=== PATIENT | female | born 1955 | race Hispanic/Latino ===

== ENCOUNTER 2019-02-04 01:10 | Emergency (ER) | payer OTHER ==
--- NOTE | 2019-02-04 03:12 | ER ---
Nurse's Notes [facility] Name: Tami Martínez Age: 64 yrs Sex: Female : 1955 Arrival Date: 02/04/2019 Time: 01:15 Bed 15 Private MD: Diagnosis: Cerebral infarction;Aphasia;Type 2 diabetes mellitus;Essential (primary) hypertension Presentation: 02/04 01:17 Presenting complaint: Child states: pt with tingling to both legs since 2099. pt with ak1 generalized leg weakness tonight. pt son stated pt with right side facial droop prior to EMS arrival, pt son states the droop to right side has resolved. pt stated upon arrival to ER15 she it having trouble swallowing. pt with hx stroke 4 years [employer]. Transition of care: patient was not received from another setting of care. Onset of symptoms was February 04, 2019. Risk Assessment: Do you want to hurt yourself or someone else? Patient reports no desire to harm self or others. Initial Sepsis Screen: Does the patient meet any 2 criteria? No. Patient's initial sepsis screen is negative. Does the patient have a suspected source of infection? No. Patient's initial sepsis screen is negative. Care prior to arrival: None. 01:17 Method Of Arrival: EMS: [facility] ak1 01:17 Acuity: FRANKY 2 ak1 01:21 Note EMS FSBG 97. pt son stated pt with deficits from stroke of slower ambulation, ak1 mumbled speech, decreased control her both her hands. Triage Assessment: 01:20 General: Appears in no apparent distress. ak1 Historical: - Allergies: 01:20 No Known Allergies; ak1 - Home Meds: 01:20 metformin 500 mg Oral tab 1 tab 2 times per day [Active]; ak1 lisinopril-hydrochlorothiazide 10-12.5 mg oral tab 1 tab once daily [Active]; Aspirin Oral [Active]; - PMHx: 01:20 Diabetes - NIDDM; TIA; Hypertension; ak1 - PSHx: 01:20 heart sx - unknown what type; ak1 - Immunization history:: Adult Immunizations unknown. - Social history:: Smoking status: Patient/guardian denies using tobacco. - Ebola Screening: : No symptoms or risks identified at this time. - Family history:: not pertinent. Screenin:30 Patient has been NPO before screening. The patient is alert, able to follow commands. lp1 The patient does not exhibit slurred or garbled speech The patient is not exhibiting difficulty speaking. The patient does not exhibit difficulty understanding words. The patient is able to swallow own secretions with no drooling or need for suction. Patient tolerated one teaspoon of water. No drooling, immediate coughing, gurgling, or clearing of the throat was noted. The patient tolerated 90mL of water. No drooling, immediate coughing, gurgling, or clearing of the throat was noted. The patient passed the bedside swallow screening. Oral medications may be given as ordered. Contact Physician for further diet orders. Provider notified of bedside swallow screening results: Madisyn ROBISON. 01:30 VAN Screening: Arm Drift: Minor drift. Visual Disturbance: No visual disturbance noted. lp1 Aphasia: No aphasia noted. Neglect: No neglect noted. 02:00 Abuse screen: Denies threats or abuse. Denies injuries from another. Nutritional lp1 screening: No deficits noted. Tuberculosis screening: No symptoms or risk factors identified. Fall Risk Total Logan Fall Scale indicates High Risk Score (45 or more points). Fall prevention measures have been instituted. Side Rails Up X 2 As available patient and family educated on Fall Prevention Program and Strategies. Assessment: 01:45 General: Appears in no apparent distress. Behavior is calm, cooperative, appropriate lp1 for age. Pain: Denies pain. Neuro: Level of Consciousness is awake, alert, obeys commands, Oriented to person, place, situation. Cardiovascular: Patient's skin is warm and dry. Respiratory: Respiratory effort is even, unlabored, Breath sounds are clear bilaterally. GI: Abdomen is non-distended. : No deficits noted. EENT: No deficits noted. Derm: Skin is pink, warm \T\ dry. Musculoskeletal: Circulation, motion, and sensation intact. Range of motion: intact in all extremities. 02:45 Reassessment: Patient states she is too weak to ambulate to bathroom or bsc; Assisted lp1 patient with using bedpan. 04:15 Reassessment: Report called to Dayanara Marie RN at [facility] for patient transfer lp1 to [place] [id number]. 05:09 Reassessment: Patient appears in no apparent distress at this time. Patient and/or lp1 family updated on plan of care and expected duration. Pain level reassessed. Patient resting, eyes closed, respirations unlabored; son at bedside. 05:57 Reassessment: Patient appears in no apparent distress at this time. No changes from lp1 previously documented assessment. Patient and/or family updated on plan of care and expected duration. Pain level reassessed. 07:00 General: Appears in no apparent distress. comfortable, Behavior is calm, cooperative. rb1 General: Son is at pt. bedside. Pt. has left sided deficits its from a previous stroke.. Pain: Denies pain. Neuro: Level of Consciousness is awake, alert, obeys commands, Oriented to person, place, situation. Cardiovascular: Capillary refill < 3 seconds is brisk in bilateral fingers. Respiratory: Airway is patent Respiratory effort is even, unlabored, Respiratory pattern is regular, symmetrical. Derm: Skin is pink, warm \T\ dry. 07:30 Reassessment: Patient appears in no apparent distress at this time. No changes from rb1 previously documented assessment. Gave report to [facility]. Information from the SBAR was given. All questions asked and answered. Vital Signs: 01:17 BP 145 / 107; Pulse 69; Resp 16; Temp 97.6; Pulse Ox 99% on R/A; Weight 81.65 kg (R); ak1 Height 5 ft. 4 in. (162.56 cm) (R); Pain 0/10; 01:30 BP 174 / 100; Pulse 73; Resp 16; Pulse Ox 96% on R/A; lp1 02:00 BP 192 / 93; Pulse 72; Resp 13; Pulse Ox 98% on R/A; lp1 02:30 BP 177 / 89; Pulse 71; Resp 16; Pulse Ox 97% on R/A; lp1 04:06 BP 150 / 63; Pulse 66; Resp 14; Pulse Ox 99% on R/A; lp1 05:46 BP 154 / 67; Pulse 76; Resp 18; Pulse Ox 98% on R/A; oe 07:00 BP 163 / 69; Pulse 73; Resp 15; Temp 97.2; Pulse Ox 98% on R/A; oe 01:17 Body Mass Index 30.90 (81.65 kg, 162.56 cm) ak1 [place] Coma Score: 02:30 Eye Response: spontaneous(4). Verbal Response: oriented(5). Motor Response: obeys snw commands(6). Total: 15. NIH Stroke Scale Scores: 01:30 NIHSS Score: 2 lp1 02:30 NIHSS Score: 3 snw 03:08 NIHSS Score: 9 prabhakar ED Course: 01:15 Patient arrived in ED. em1 01:17 Arm band placed on Patient placed in an exam room, on a stretcher, on pulse oximetry, ak1 Patient notified of wait time. 01:19 Triage completed. ak1 01:20 Madisyn Francis FNP-C is PHCP. snw 01:20 Bryon Morfin MD is Attending Physician. snw 01:21 Maintain EMS IV. Dressing intact. Site clean \T\ dry. Gauge \T\ site: 20g left wrist.. ak 1 01:50 Initial lab(s) drawn, by me, sent to lab. lp1 01:58 Jessica Kim, RN is Primary Nurse. lp1 01:59 Patient has correct armband on for positive identification. Placed in gown. Bed in low lp1 position. Side rails up X2. monitoring analyst on. Pulse ox on. NIBP on. 02:17 XRAY Chest (1 view) In Process Unspecified. EDMS 02:40 CT Head Brain wo Cont In Process Unspecified. EDMS 03:52 Administrative approval for transfer given by Sussy Valiente RN, [facility] Transfer em1 Coordinator. 04:06 No provider procedures requiring assistance completed. lp1 05:01 Due to the unavailability of transport resources, transport time has been delayed. [address] [facility] has no available ambulances, [facility] has not been able to be contacted, and other outside resources are also unavailable. 06:49 Straight cath inserted, using sterile technique, 16 Fr. Returned clear yellow urine. jb5 Patient tolerated well. 07:35 Patient transferred, IV remains in place. rb1 Administered Medications: 03:25 Drug: foLIC Acid 1 mg Route: IVPB; Site: left wrist; lp1 03:40 Follow up: IV Status: Completed infusion lp1 03:25 Drug: NS 0.9% 1000 ml Route: IV; Rate: 1 bolus; Site: left wrist; lp1 05:00 Follow up: IV Status: Completed infusion; IV Intake: 1000ml lp1 03:25 Drug: Aspirin Chewable Tablet 324 mg Route: PO; lp1 04:30 Follow up: Response: No adverse reaction lp1 03:25 Drug: PlaVIX 75 mg Route: PO; lp1 04:30 Follow up: Response: No adverse reaction lp1 Point of Care Testing: Blood Glucose: 01:21 Blood Glucose: 101 mg/dL; lp1 Ranges: Intake: 05:00 IV: 1000ml; Total: 1000ml. lp1 Outcome: 03:11 ER care complete, transfer ordered by prabhakar 04:16 Condition: stable lp1 04:16 Instructed on the need for transfer. 07:35 Patient left the ED. rb1 07:35 Transferred by ground EMS to [facility], Transfer form completed. rb1 NIH Stroke Scale - NIH Stroke Score Date: 02/04/2019 Time: 01:30 Total Score = 2 1a. Level of Consciousness (LOC) - 0(Alert) 1b. Level of Consciousness (LOC) (Year \T\ Age) - 0(Both) 1c. LOC Commands (Open \T\ Closes Eyes/Investor Relations Director) - 0(Both) 2. Best Gaze (Lateral Gaze Paresis) - 0(Normal) 3. Visual Field Loss - 0(No visual loss) 4. Facial Palsy - 1(Minor Paralysis) 5a. Left Arm: Motor (10-second hold) - 0(No drift) 5b. Right Arm: Motor (10-second hold) - 0(No drift) 6a. Left Leg: Motor (5-second hold - always test supine) - 0(No drift) 6b. Right Leg: Motor (5-second hold - always test supine) - 0(No drift) 7. Limb Ataxia (finger/nose \T\ heel/schulte - test with eyes open) - 0(Absent) 8. Sensory Loss (pinprick arms/legs/face) - 0(Normal) 9. Best Language: Aphasia (description/naming/reading) - 1(Mild to moderate aphasia) 10. Dysarthria (speech clarity - read or repeat words) - 0(Normal) 11. Extinction and Inattention (visual/tactile/auditory/spatial/personal) - 0(No abnormality) Initials: lp1 NIH Stroke Scale - NIH Stroke Score Date: 02/04/2019 Time: 02:30 Total Score = 3 1a. Level of Consciousness (LOC) - 0(Alert) 1b. Level of Consciousness (LOC) (Year \T\ Age) - 0(Both) 1c. LOC Commands (Open \T\ Closes Eyes/Investor Relations Director) - 0(Both) 2. Best Gaze (Lateral Gaze Paresis) - 0(Normal) 3. Visual Field Loss - 0(No visual loss) 4. Facial Palsy - 1(Minor Paralysis) 5a. Left Arm: Motor (10-second hold) - 0(No drift) 5b. Right Arm: Motor (10-second hold) - 0(No drift) 6a. Left Leg: Motor (5-second hold - always test supine) - 0(No drift) 6b. Right Leg: Motor (5-second hold - always test supine) - 0(No drift) 7. Limb Ataxia (finger/nose \T\ heel/schulte - test with eyes open) - 0(Absent) 8. Sensory Loss (pinprick arms/legs/face) - 1(Mild to moderate loss) 9. Best Language: Aphasia (description/naming/reading) - 0(No aphasia) 10. Dysarthria (speech clarity - read or repeat words) - 1(Mild to Moderate) 11. Extinction and Inattention (visual/tactile/auditory/spatial/personal) - 0(No abnormality) Initials: [facility] NIH Stroke Scale - NIH Stroke Score Date: 02/04/2019 Time: 03:08 Total Score = 9 1a. Level of Consciousness (LOC) - 0(Alert) 1b. Level of Consciousness (LOC) (Year \T\ Age) - 0(Both) 1c. LOC Commands (Open \T\ Closes Eyes/Investor Relations Director) - 0(Both) 2. Best Gaze (Lateral Gaze Paresis) - 0(Normal) 3. Visual Field Loss - 0(No visual loss) 4. Facial Palsy - 2(Partial paralysis) 5a. Left Arm: Motor (10-second hold) - 2(Drift, some effort against gravity) 5b. Right Arm: Motor (10-second hold) - 0(No drift) 6a. Left Leg: Motor (5-second hold - always test supine) - 1(Drift) 6b. Right Leg: Motor (5-second hold - always test supine) - 0(No drift) 7. Limb Ataxia (finger/nose \T\ heel/schulte - test with eyes open) - 2(Present in two limbs) 8. Sensory Loss (pinprick arms/legs/face) - 0(Normal) 9. Best Language: Aphasia (description/naming/reading) - 1(Mild to moderate aphasia) 10. Dysarthria (speech clarity - read or repeat words) - 1(Mild to Moderate) 11. Extinction and Inattention (visual/tactile/auditory/spatial/personal) - 0(No abnormality) Initials: prabhakar Signatures: Dispatcher [employer] EDMS Bryon Morfin MD MD cha Therrien, Shelly, PATIENT SCHEDULER-C PATIENT SCHEDULER-Csnw Guanako Vasquez em1 Jessica Kim RN RN lp1 Shayy Sanz RN RN ak1 Asia Bryan RN RN rb1 Leonard Clark Jennifer jb5 Corrections: (The following items were deleted from the chart) 07:39 07:30 Reassessment: Gave report to [facility]. Information from the SBAR was rb1 given. All questions asked and answered. rb1
--- NOTE | 2019-02-04 03:13 | EDPHYS ---
Physician Documentation [facility] Name: Tami Martínez Age: 64 yrs Sex: Female : 1955 Arrival Date: 02/04/2019 Time: 01:15 Bed 15 Private MD: ED Physician Bryon Morfin HPI: 02/04 03:11 This 64 yrs old Female presents to ER via EMS with complaints of aphasia, left prabhakar face weakness and left arm and leg weakness. 01:59 The patient's problem is reported as a facial droop, on right, weakness. Onset: The snw symptoms/episode began/occurred suddenly, at 20:00, and improved. Duration: improved. Context: the episode(s) was witnessed, by family, son, symptoms became apparent on February 03, 2019, at 20:00. occurred at home, occurred while the patient was at rest. Associated signs and symptoms: Pertinent positives: tingling, weakness, right sided facial droop. Severity of symptoms: At their worst the symptoms were moderate. Patient's baseline: Neuro: alert and fully oriented, Motor: no deficits, The patient has a previous history of CVA, 4 years ago. The patient has experienced similar episodes in the past. The patient has not recently seen a physician, the patient's primary care provider is Dr. Dr. Villaseñor. 03:11 Context: occurred at home, time from onset greater than 4.5 hours, not tpa candidate, prabhakar mckenzie agreeed. Historical: - Allergies: 01:20 No Known Allergies; ak1 - Home Meds: 01:20 metformin 500 mg Oral tab 1 tab 2 times per day [Active]; ak1 lisinopril-hydrochlorothiazide 10-12.5 mg oral tab 1 tab once daily [Active]; Aspirin Oral [Active]; - PMHx: 01:20 Diabetes - NIDDM; TIA; Hypertension; ak1 - PSHx: 01:20 heart sx - unknown what type; ak1 - Immunization history:: Adult Immunizations unknown. - Social history:: Smoking status: Patient/guardian denies using tobacco. - Ebola Screening: : No symptoms or risks identified at this time. - Family history:: not pertinent. ROS: 02:03 Constitutional: Negative for fever, chills, and weight loss, Eyes: Negative for injury, snw pain, redness, and discharge, ENT: Negative for injury, pain, and discharge, Neck: Negative for injury, pain, and swelling, Cardiovascular: Negative for chest pain, palpitations, and edema, Respiratory: Negative for shortness of breath, cough, wheezing, and pleuritic chest pain, Abdomen/GI: Negative for abdominal pain, nausea, vomiting, diarrhea, and constipation, Back: Negative for injury and pain, : Negative for injury, bleeding, discharge, and swelling, MS/Extremity: Negative for injury and deformity, Skin: Negative for injury, rash, and discoloration. 02:03 Neuro: Positive for speech changes, tingling, weakness, of the left facial droop, left hand tingling, bilateral feet tingling. Exam: 02:04 Constitutional: This is a well developed, well nourished patient who is awake, alert, snw and in no acute distress. Head/Face: Normocephalic, atraumatic. Eyes: Pupils equal round and reactive to light, extra-ocular motions intact. Lids and lashes normal. Conjunctiva and sclera are non-icteric and not injected. Cornea within normal limits. Periorbital areas with no swelling, redness, or edema. ENT: Nares patent. No nasal discharge, no septal abnormalities noted. Tympanic membranes are normal and external auditory canals are clear. Oropharynx with no redness, swelling, or masses, exudates, or evidence of obstruction, uvula midline. Mucous membranes moist. Neck: Trachea midline, no thyromegaly or masses palpated, and no cervical lymphadenopathy. Supple, full range of motion without nuchal rigidity, or vertebral point tenderness. No Meningismus. Chest/axilla: Normal chest wall appearance and motion. Nontender with no deformity. No lesions are appreciated. Cardiovascular: Regular rate and rhythm with a normal S1 and S2. No gallops, murmurs, or rubs. Normal PMI, no JVD. No pulse deficits. Respiratory: Lungs have equal breath sounds bilaterally, clear to auscultation and percussion. No rales, rhonchi or wheezes noted. No increased work of breathing, no retractions or nasal flaring. Abdomen/GI: Soft, non-tender, with normal bowel sounds. No distension or tympany. No guarding or rebound. No evidence of tenderness throughout. Back: No spinal tenderness. No costovertebral tenderness. Full range of motion. Skin: Warm, dry with normal turgor. Normal color with no rashes, no lesions, and no evidence of cellulitis. MS/ Extremity: Pulses equal, no cyanosis. Neurovascular intact. Full, normal range of motion. Psych: Awake, alert, with orientation to person, place and time. Behavior, mood, and affect are within normal limits. 02:04 Neuro: Orientation: is normal, Mentation: is normal, Memory: is normal, Cranial nerves: facial droop noted on left, minimal, Son states obvious improvement. Sensation: tingling, that is mild, of the left hand, right foot and left foot, Gait: not tested. Vital Signs: 01:17 BP 145 / 107; Pulse 69; Resp 16; Temp 97.6; Pulse Ox 99% on R/A; Weight 81.65 kg (R); ak1 Height 5 ft. 4 in. (162.56 cm) (R); Pain 0/10; 01:30 BP 174 / 100; Pulse 73; Resp 16; Pulse Ox 96% on R/A; lp1 02:00 BP 192 / 93; Pulse 72; Resp 13; Pulse Ox 98% on R/A; lp1 02:30 BP 177 / 89; Pulse 71; Resp 16; Pulse Ox 97% on R/A; lp1 04:06 BP 150 / 63; Pulse 66; Resp 14; Pulse Ox 99% on R/A; lp1 05:46 BP 154 / 67; Pulse 76; Resp 18; Pulse Ox 98% on R/A; oe 07:00 BP 163 / 69; Pulse 73; Resp 15; Temp 97.2; Pulse Ox 98% on R/A; oe 01:17 Body Mass Index 30.90 (81.65 kg, 162.56 cm) ak1 NIH Stroke Scale Scores: 01:30 NIHSS Score: 2 lp1 02:30 NIHSS Score: 3 snw 03:08 NIHSS Score: 9 [facility] Verenice Coma Score: 02:30 Eye Response: spontaneous(4). Verbal Response: oriented(5). Motor Response: obeys snw commands(6). Total: 15. MDM: 01:21 Patient medically screened. [facility] 02:47 Data reviewed: vital signs, nurses notes, EMS record. Data interpreted: Pulse oximetry: snw on is 97 %. Interpretation: normal. Counseling: I had a detailed discussion with the patient and/or guardian regarding: the historical points, exam findings, and any diagnostic results supporting the discharge/admit diagnosis, the presence of at least one elevated blood pressure reading (>120/80) during this emergency department visit. Transition of care: After a detail discussion of the patient's case, care is transferred to Bryon Morfin MD. 02/04 01:34 Order name: Basic Metabolic Panel; Complete Time: 06:33 snw 02/04 01:34 Order name: CBC with Diff; Complete Time: 06:33 snw 02/04 01:34 Order name: LFT's; Complete Time: 06:33 w 02/04 01:34 Order name: Magnesium; Complete Time: 06:33 w 02/04 01:34 Order name: NT PRO-BNP; Complete Time: 06:33 snw 02/04 01:34 Order name: PT-INR; Complete Time: 06:33 w 02/04 01:34 Order name: CT Head Brain wo Cont w 02/04 01:34 Order name: Troponin (emerg Dept Use Only); Complete Time: 06:33 w 02/04 01:34 Order name: XRAY Chest (1 view); Complete Time: 17:09 w 02/04 06:34 Order name: Urine Culture [facility] 02/04 06:53 Order name: Urine Dipstick--Ancillary (enter results) em1 02/04 01:34 Order name: EKG; Complete Time: 01:37 02/04 01:34 Order name: Cardiac monitoring; Complete Time: 02:02 02/04 01:34 Order name: EKG - Nurse/Tech; Complete Time: 02:02 w 02/04 01:34 Order name: IV Saline Lock; Complete Time: 02:02 02/04 01:34 Order name: Labs collected and sent; Complete Time: 02:02 02/04 01:34 Order name: O2 Per Protocol; Complete Time: 02:02 w 02/04 01:34 Order name: O2 Sat Monitoring; Complete Time: 02:03 02/04 01:40 Order name: FSBS; Complete Time: 02:01 02/04 06:34 Order name: Urine Dipstick-Ancillary (obtain specimen); Complete Time: 07:13 prabhakar Administered Medications: 03:25 Drug: foLIC Acid 1 mg Route: IVPB; Site: left wrist; lp1 03:40 Follow up: IV Status: Completed infusion lp1 03:25 Drug: NS 0.9% 1000 ml Route: IV; Rate: 1 bolus; Site: left wrist; lp1 05:00 Follow up: IV Status: Completed infusion; IV Intake: 1000ml lp1 03:25 Drug: Aspirin Chewable Tablet 324 mg Route: PO; lp1 04:30 Follow up: Response: No adverse reaction lp1 03:25 Drug: PlaVIX 75 mg Route: PO; lp1 04:30 Follow up: Response: No adverse reaction lp1 Point of Care Testing: Blood Glucose: 01:21 Blood Glucose: 101 mg/dL; lp1 Ranges: Critical Glucose Levels:Adult <50 mg/dl or >400 mg/dl <40 mg/dl or >180 mg/dl Disposition: 03:11 Co-signature as Attending Physician, Bryon Morfin MD I agree with the assessment and prabhakar plan of care. Disposition: 02/04/19 03:11 Transfer ordered to [facility]. Diagnosis are Cerebral infarction, Aphasia, Type 2 diabetes mellitus, Essential (primary) hypertension. - Reason for transfer: Higher level of care. - Accepting physician [facility] to [facility], [facility], neuro consult. - Condition is Stable. - Problem is new. - Symptoms are unchanged. NIH Stroke Scale - NIH Stroke Score Date: 02/04/2019 Time: 01:30 Total Score = 2 1a. Level of Consciousness (LOC) - 0(Alert) 1b. Level of Consciousness (LOC) (Year \T\ Age) - 0(Both) 1c. LOC Commands (Open \T\ Closes Eyes/Mig Welder) - 0(Both) 2. Best Gaze (Lateral Gaze Paresis) - 0(Normal) 3. Visual Field Loss - 0(No visual loss) 4. Facial Palsy - 1(Minor Paralysis) 5a. Left Arm: Motor (10-second hold) - 0(No drift) 5b. Right Arm: Motor (10-second hold) - 0(No drift) 6a. Left Leg: Motor (5-second hold - always test supine) - 0(No drift) 6b. Right Leg: Motor (5-second hold - always test supine) - 0(No drift) 7. Limb Ataxia (finger/nose \T\ heel/schulte - test with eyes open) - 0(Absent) 8. Sensory Loss (pinprick arms/legs/face) - 0(Normal) 9. Best Language: Aphasia (description/naming/reading) - 1(Mild to moderate aphasia) 10. Dysarthria (speech clarity - read or repeat words) - 0(Normal) 11. Extinction and Inattention (visual/tactile/auditory/spatial/personal) - 0(No abnormality) Initials: lp1 NIH Stroke Scale - NIH Stroke Score Date: 02/04/2019 Time: 02:30 Total Score = 3 1a. Level of Consciousness (LOC) - 0(Alert) 1b. Level of Consciousness (LOC) (Year \T\ Age) - 0(Both) 1c. LOC Commands (Open \T\ Closes Eyes/Mig Welder) - 0(Both) 2. Best Gaze (Lateral Gaze Paresis) - 0(Normal) 3. Visual Field Loss - 0(No visual loss) 4. Facial Palsy - 1(Minor Paralysis) 5a. Left Arm: Motor (10-second hold) - 0(No drift) 5b. Right Arm: Motor (10-second hold) - 0(No drift) 6a. Left Leg: Motor (5-second hold - always test supine) - 0(No drift) 6b. Right Leg: Motor (5-second hold - always test supine) - 0(No drift) 7. Limb Ataxia (finger/nose \T\ heel/schulte - test with eyes open) - 0(Absent) 8. Sensory Loss (pinprick arms/legs/face) - 1(Mild to moderate loss) 9. Best Language: Aphasia (description/naming/reading) - 0(No aphasia) 10. Dysarthria (speech clarity - read or repeat words) - 1(Mild to Moderate) 11. Extinction and Inattention (visual/tactile/auditory/spatial/personal) - 0(No abnormality) Initials: snw NIH Stroke Scale - NIH Stroke Score Date: 02/04/2019 Time: 03:08 Total Score = 9 1a. Level of Consciousness (LOC) - 0(Alert) 1b. Level of Consciousness (LOC) (Year \T\ Age) - 0(Both) 1c. LOC Commands (Open \T\ Closes Eyes/Mig Welder) - 0(Both) 2. Best Gaze (Lateral Gaze Paresis) - 0(Normal) 3. Visual Field Loss - 0(No visual loss) 4. Facial Palsy - 2(Partial paralysis) 5a. Left Arm: Motor (10-second hold) - 2(Drift, some effort against gravity) 5b. Right Arm: Motor (10-second hold) - 0(No drift) 6a. Left Leg: Motor (5-second hold - always test supine) - 1(Drift) 6b. Right Leg: Motor (5-second hold - always test supine) - 0(No drift) 7. Limb Ataxia (finger/nose \T\ heel/schulte - test with eyes open) - 2(Present in two limbs) 8. Sensory Loss (pinprick arms/legs/face) - 0(Normal) 9. Best Language: Aphasia (description/naming/reading) - 1(Mild to moderate aphasia) 10. Dysarthria (speech clarity - read or repeat words) - 1(Mild to Moderate) 11. Extinction and Inattention (visual/tactile/auditory/spatial/personal) - 0(No abnormality) Initials: [facility] Signatures: Dispatcher [employer] EDBryon Lockett MD MD cha Therrien, Shelly, ENVIRONMENTAL ASSOCIATE-C ENVIRONMENTAL ASSOCIATE-Csnw Jessica Kim RN RN lp1 Shayy Sanz RN RN ak1 Asia Bryan, RN RN rb1 Corrections: (The following items were deleted from the chart) 02:07 02:03 Neuro: Positive for speech changes, tingling, weakness, of the right snw facial droop, right hand tingling, , snw 03:15 03:11 02/04/2019 03:11 Transfer ordered to [facility]. prabhakar Diagnosis is Cerebral infarction; Aphasia. Reason for transfer: Higher level of care. Accepting physician is to [facility], tele, neuro consult. Condition is Stable. Problem is new. Symptoms are unchanged. prabhakar 07:35 03:15 02/04/2019 03:11 Transfer ordered to [facility]. rb1 Diagnosis is Cerebral infarction; Aphasia; Type 2 diabetes mellitus; Essential (primary) hypertension. Reason for transfer: Higher level of care. Accepting physician is to [facility], tele, neuro consult. Condition is Stable. Problem is new. Symptoms are unchanged. prabhakar
[2019-02-04] MEDS ORDERED: ASPIRIN 81 MG CHEWABLE TABLET ONE (03:14)
[2019-02-04] MEDS ORDERED: NA CHLORIDE 0.9% 1,000 ML ONE (03:14)
[2019-02-04] MEDS ORDERED: CLOPIDOGREL 75 MG TABLET ONE (03:14)
[2019-02-04] MEDS ORDERED: NA CHLORIDE 0.9% 50 ML IV ONE (03:15)
[2019-02-04] MEDS ORDERED: FOLIC ACID 5 MG/ML VIAL ONE (03:15)
[2019-02-04 03:29] LABS: Protime INR 1.05
[2019-02-04 03:30] LABS: MPV 9.1 fL (7.6-11.3)
[2019-02-04 03:34] LABS: Absolute Lymphocytes (CBC) 2.8 K/uL (0.7-4.9); Basophils % 0.7 % (0-1.3); RBC Red Blood Cell Count 4.55 M/uL (3.86-4.86)
[2019-02-04 03:46] LABS: ALT/SGPT 33 U/L (12-78); AST/SGOT 24 U/L (15-37); Albumin 3.8 g/dL (3.4-5.0); Alkaline Phosphatase 126 U/L (45-117); BUN Blood Urea Nitrogen 12 mg/dL (7-18); Bicarbonate 26 mmol/L (21-32); Bilirubin Direct 0.1 mg/dL (0-0.2); Bilirubin Total 0.5 mg/dL (0.2-1.0); Glucose Level 113 mg/dL (74-106); Magnesium 2.1 mg/dL (1.8-2.4); NT PRO-BNP 30 pg/mL (<125); Potassium 3.6 mmol/L (3.5-5.1); Protein, Total 7.7 g/dL (6.4-8.2); Sodium Level 139 mmol/L (136-145); Troponin (Emerg Dept Use Only) < 0.02 ng/mL (0.0-0.045)
--- NOTE | 2019-02-04 07:45 | RAD REPORT ---
EXAM DESCRIPTION: RAD - Chest Single View - 02/04/2019 2:02 am CLINICAL HISTORY: Weakness, shortness of breath COMPARISON: None. TECHNIQUE: AP portable chest image was obtained [id number] hours . FINDINGS: Lungs are clear. Heart and vasculature are normal. No measurable pleural effusion and no p neumothorax. No acute bony abnormality seen. No acute aortic findings suspected. IMPRESSION: No acute cardiopulmonary process.
[2019-02-04 07:54] LABS: Urine Blood TRACE (NEG); Urine Glucose NEGATIVE (NEG); Urine Protein NEGATIVE (NEG)
[2019-02-04 08:02] VITALS: BP 126/54; TEMP 98.6; O2SAT 93
--- NOTE | 2019-02-04 13:15 | RAD REPORT ---
EXAM DESCRIPTION: CT - Head Brain Wo Cont - 02/04/2019 3:24 am CLINICAL HISTORY: WEAKNESS COMPARISON: None. TECHNIQUE: CT HEAD WITHOUT IV CONTRAST on 02/04/2019 1:34 AM CDT This exam was performed according to our departmental dose-optimization program, which includes autom ated exposure control, adjustment of the mA and/or kV according to patient size and/or use of iterati ve reconstruction technique. FINDINGS: There is no acute hemorrhage, mass effect or midline shift. There are bilateral old anteri or basal ganglia lacunar infarcts. There is no hydrocephalus. There is no significant volume loss for age. There are mild patchy hypodensities within the periventricular and subcortical white matter, co nsistent with microangiopathic ischemic changes. The calvarium is intact. Orbits and globes are unremarkable. The paranasal sinuses are clear. There a re postoperative changes of the right mastoid air cells. IMPRESSION: No acute intracranial findings. Electronically signed by: Anderson Mccurdy MD 02/04/2019 3:14 AM CDT Due to temporary technical issues with the PACS/Fluency reporting system, reports are being signed by the in house radiologist as a courtesy to ensure prompt reporting. The interpreting radiologist is f ully responsible for the content of the report.
--- NOTE | 2019-02-05 08:42 | EKG ---
Test Date: 2019-02-04 Test Time: 02:29:56 Community Dietitian: PARVIN MEASUREMENT RESULTS: Intervals: Rate: 65 TX: 168 QRSD: 92 QT: 418 QTc: 434 [place]: P: 16 TX: 168 QRS: -20 T: 42 INTERPRETIVE STATEMENTS: Normal sinus rhythm possible Septal infarct, age undetermined Abnormal ECG No previous ECG available for comparison Electronically Signed On 02-05-19 08:40:31 CDT by Sam Lama
== END 2019-02-04 07:35 | disposition short-term general hospital (02) ==
LOC: ER 01:10
DX: I63.9 Cerebral infarction, unspecified (principal); R47.01 Aphasia; E11.9 Type 2 diabetes mellitus without complications; I10 Essential (primary) hypertension
CPT/HCPCS: 96361; 93005; 87088; 85025; 80048; 36415; 83735; 85610; 82962; 80076; 81003; 84484; 83880; 70450; 71045; 51702; 96374; 99285; J7030; 87086

== ENCOUNTER 2019-04-28 21:32 | Emergency (ER) | payer OTHER ==
--- OUTSIDE RECORDS SUMMARY | 2019-04-28 21:34 | XMS REPORT ---
:1955 [facility] [address] [place] [address] [address]. [address] [place] [address] Care Team Providers Name Role Phone DIANN RICEOMA Unavailable Unavailable Problems This patient has no known problems. Allergies, Adverse Reactions, Alerts This patient has no known allergies or adverse reactions. Medications This patient has no known medications. Encounters Start End Encounter Admission Attending Care Care Encounter Date/Time Date/Time Type Type Clinicians Facility Department ID 2018-03-03 2018-03-03 Outpatient [facility] [id number] 00:00:00 00:00:00 2018-03-03 2018-03-03 Outpatient [facility] [id number] 00:00:00 00:00:00 2018-01-21 2018-01-21 Outpatient [facility] [id number] 00:00:00 00:00:00 2018 2018 Outpatient [facility] [id number] 14:49:14 14:49:14 2017-12-29 2017-12-29 Outpatient [facility] [id number] 00:00:00 00:00:00 2017-11-19 2017-11-19 Outpatient [facility] [id number] 00:00:00 00:00:00 2017-11-05 2017-11-05 Outpatient [facility] [id number] 00:00:00 00:00:00 2017-10-28 2017-10-28 Outpatient [facility] [id number] 00:00:00 00:00:00 2017-07-11 2017-07-11 Outpatient [facility] [id number] 00:00:00 00:00:00 Results Test Description Test Time Test Comments Text Results Atomic Results Result Comments POCT-GLUCOSE METER 2019-02-10 08:36:00 Test Item Value Reference Range Comments POC-GLUCOSE METER (BEAKER) (test 134 mg/dL 70-110 TESTED AT [address] splf=0567) [facility] [address] BASIC METABOLIC [id number] 06:41:00 Test Item Value Reference Range Comments SODIUM (BEAKER) (test 140 meq/L 136-145 uooc=446) POTASSIUM (BEAKER) (test 3.8 meq/L 3.5-5.1 ffoz=825) CHLORIDE (BEAKER) (test 107 meq/L 98-107 zpvi=637) CO2 (BEAKER) (test 25 meq/L 22-29 zwwt=510) BLOOD UREA NITROGEN 13 mg/dL 7-21 (BEAKER) (test bmln=224) CREATININE (BEAKER) (test 0.68 mg/dL 0.57-1.25 vxea=357) GLUCOSE RANDOM (BEAKER) 112 mg/dL 70-105 (test ybox=252) CALCIUM (BEAKER) (test 9.0 mg/dL 8.4-10.2 wikb=466) EGFR (BEAKER) (test 87 mL/min/1.73 sq m ESTIMATED GFR IS NOT frsd=8759) ACCURATE CREATININE CLEARANCE IN PREDICTING GLOMERULAR FILTRATION RATE. ESTIMATED GFR IS NOT APPLICABLE FOR DIALYSIS PATIENTS. POCT-GLUCOSE [id number] 21:31:00 Test Item Value Reference Range Comments POC-GLUCOSE METER (BEAKER) 112 mg/dL 70-110 TESTED AT [address] (test stvc=1049) [place] [address] POCT-GLUCOSE [id number] 16:38:00 Test Item Value Reference Range Comments POC-GLUCOSE METER (BEAKER) 102 mg/dL 70-110 TESTED AT [address] (test twqy=1994) [place] [address] POCT-GLUCOSE [id number] 08:41:00 Test Item Value Reference Range Comments POC-GLUCOSE METER (BEAKER) 91 mg/dL 70-110 TESTED AT [address] (test tvwf=2653) [place] [address] POCT-GLUCOSE [id number] 06:49:00 Test Item Value Reference Range Comments POC-GLUCOSE METER (BEAKER) 106 mg/dL 70-110 TESTED AT [address] (test bsob=8778) [place] [address] BASIC METABOLIC [id number] 04:23:00 Test Item Value Reference Range Comments SODIUM (BEAKER) (test 137 meq/L 136-145 abaq=786) POTASSIUM (BEAKER) (test 4.0 meq/L 3.5-5.1 rxrc=585) CHLORIDE (BEAKER) (test 106 meq/L 98-107 rtvw=605) CO2 (BEAKER) (test 24 meq/L 22-29 llis=132) BLOOD UREA NITROGEN 13 mg/dL 7-21 (BEAKER) (test lkak=721) CREATININE (BEAKER) (test 0.69 mg/dL 0.57-1.25 sdxt=793) GLUCOSE RANDOM (BEAKER) 150 mg/dL 70-105 (test siuu=278) CALCIUM (BEAKER) (test 8.7 mg/dL 8.4-10.2 swiz=593) EGFR (BEAKER) (test 86 mL/min/1.73 sq m ESTIMATED GFR IS NOT vygd=6245) ACCURATE CREATININE CLEARANCE IN PREDICTING GLOMERULAR FILTRATION RATE. ESTIMATED GFR IS NOT APPLICABLE FOR DIALYSIS PATIENTS. POCT-GLUCOSE [id number] 21:45:00 Test Item Value Reference Range Comments POC-GLUCOSE METER (BEAKER) 129 mg/dL 70-110 TESTED AT [address] (test comd=4688) [place] [address] POCT-GLUCOSE [id number] 18:16:00 Test Item Value Reference Range Comments POC-GLUCOSE METER (BEAKER) 94 mg/dL 70-110 TESTED AT [address] (test clgv=3477) [place] [address] POCT-GLUCOSE [id number] 12:50:00 Test Item Value Reference Range Comments POC-GLUCOSE METER (BEAKER) 122 mg/dL 70-110 TESTED AT [address] (test svkg=1936) [place] [address] POCT-GLUCOSE [id number] 09:50:00 Test Item Value Reference Range Comments POC-GLUCOSE METER (BEAKER) 94 mg/dL 70-110 TESTED AT [address] (test ykvw=0459) [place] [address] BASIC METABOLIC [id number] 06:34:00 Test Item Value Reference Range Comments SODIUM (BEAKER) (test 138 meq/L 136-145 fshu=833) POTASSIUM (BEAKER) (test 4.0 meq/L 3.5-5.1 tgzn=356) CHLORIDE (BEAKER) (test 106 meq/L 98-107 ikhk=357) CO2 (BEAKER) (test 25 meq/L 22-29 ezdm=510) BLOOD UREA NITROGEN 12 mg/dL 7-21 (BEAKER) (test uhqb=906) CREATININE (BEAKER) (test 0.68 mg/dL 0.57-1.25 ltxy=586) GLUCOSE RANDOM (BEAKER) 119 mg/dL 70-105 (test lczi=224) CALCIUM (BEAKER) (test 9.1 mg/dL 8.4-10.2 qrdw=130) EGFR (BEAKER) (test 87 mL/min/1.73 sq m ESTIMATED GFR IS NOT ursm=9682) ACCURATE CREATININE CLEARANCE IN PREDICTING GLOMERULAR FILTRATION RATE. ESTIMATED GFR IS NOT APPLICABLE FOR DIALYSIS PATIENTS. POCT-GLUCOSE [id number] 06:23:00 Test Item Value Reference Range Comments POC-GLUCOSE METER (BEAKER) 134 mg/dL 70-110 TESTED AT [address] (test hcwz=5428) [place] [id number] POCT-GLUCOSE [id number] 00:08:00 Test Item Value Reference Range Comments POC-GLUCOSE METER (BEAKER) 99 mg/dL 70-110 TESTED AT [address] (test hvya=9424) [place] [address] POCT-GLUCOSE [id number] 10:01:00 Test Item Value Reference Range Comments POC-GLUCOSE METER (BEAKER) 118 mg/dL 70-110 TESTED AT [address] (test xoyk=3363) [facility] [address] BASIC METABOLIC [id number] 06:36:00 Test Item Value Reference Range Comments SODIUM (BEAKER) (test 139 meq/L 136-145 lcwe=915) POTASSIUM (BEAKER) (test 3.7 meq/L 3.5-5.1 fwfe=118) CHLORIDE (BEAKER) (test 107 meq/L 98-107 cgnu=582) CO2 (BEAKER) (test 23 meq/L 22-29 rkma=578) BLOOD UREA NITROGEN 12 mg/dL 7-21 (BEAKER) (test yeuu=748) CREATININE (BEAKER) (test 0.69 mg/dL 0.57-1.25 sgxp=374) GLUCOSE RANDOM (BEAKER) 111 mg/dL 70-105 (test gfdx=426) CALCIUM (BEAKER) (test 9.1 mg/dL 8.4-10.2 qfgj=975) EGFR (BEAKER) (test 86 mL/min/1.73 sq m ESTIMATED GFR IS NOT huyy=4989) ACCURATE CREATININE CLEARANCE IN PREDICTING GLOMERULAR FILTRATION RATE. ESTIMATED GFR IS NOT APPLICABLE FOR DIALYSIS PATIENTS. POCT-GLUCOSE [id number] 06:29:00 Test Item Value Reference Range Comments POC-GLUCOSE METER (BEAKER) 96 mg/dL 70-110 TESTED AT [address] (test mltp=8463) [facility] [address] POCT-GLUCOSE [id number] 21:44:00 Test Item Value Reference Range Comments POC-GLUCOSE METER (BEAKER) 131 mg/dL 70-110 TESTED AT [address] (test nbwn=2231) [facility] [address] POCT-GLUCOSE [id number] 17:40:00 Test Item Value Reference Range Comments POC-GLUCOSE METER (BEAKER) 145 mg/dL 70-110 TESTED AT [address] (test ybxz=9113) [facility] [address] POCT-GLUCOSE [id number] 13:02:00 Test Item Value Reference Range Comments POC-GLUCOSE METER (BEAKER) 108 mg/dL 70-110 TESTED AT [address] (test dvzw=5471) [facility] [address] POCT-GLUCOSE [id number] 08:49:00 Test Item Value Reference Range Comments POC-GLUCOSE METER (BEAKER) 106 mg/dL 70-110 TESTED AT [address] (test ktmp=6230) [facility] [address] POCT-GLUCOSE [id number] 06:02:00 Test Item Value Reference Range Comments POC-GLUCOSE METER (BEAKER) 99 mg/dL 70-110 TESTED AT [address] (test cfzd=1820) [facility] [address] POCT-GLUCOSE [id number] 00:54:00 Test Item Value Reference Range Comments POC-GLUCOSE METER (BEAKER) 120 mg/dL 70-110 TESTED AT [address] (test gtoo=9883) [facility] [address] POCT-GLUCOSE [id number] 12:27:00 Test Item Value Reference Range Comments POC-GLUCOSE METER (BEAKER) 113 mg/dL 70-[address] [facility] [address] (test nkkg=0350) [facility] [address] [id number] 11:05:00 Test Item Value Reference Range Comments RPR SCREEN (MOHINDER) (test bohm=149) Nonreactive Nonreactive MR, MRA, BRAIN, WITHOUT [id number] 10:13:00Reason for exam:-> Ischemic Stroke EvaluationFINAL REPORT MRA Head CLINICAL HISTORY: Stroke TECHNIQUE: MRA of the head utilizing 3-D wccp-an-tkiafp technique, with 3-D reconstructions. COMPARISON: None FINDINGS: There is noevidence for a deering of Treadwell proximal branch vessel occlusion. There is a origin of the right posterior cerebral artery with severe proximal stenosis. There is moderate stenosis of the right middle cerebral artery and mild stenosis of the left middle cerebral artery. There is severe stenosis of the right intradural vertebral artery. The nondominant left intradural vertebral artery is diminutive. There is a 2.5 mm aneurysm projecting medially from the right paraclinoid internal carotid artery, involving the superior hypophyseal segment. 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 No evidence for a deering of Treadwell proximal branch vessel occlusion. Multifocal intracranial atherosclerotic disease. MRA Neck CLINICAL HISTORY: Stroke TECHNIQUE: MRA of the neck utilizing 2-D and 3-D time- of-flight technique, with 3-D reconstructions. COMPARISON: None FINDINGS: The carotid arteries inthe neck are patent including their bifurcations. There is antegrade flow in the vertebral arteries in the neck. The nondominant left vertebral artery is diminutive throughout. IMPRESSION: No evidence of hemodynamically significant stenosis in the cervical carotid or vertebral arteries by NASCET criteria. Signed: Lilia Lewis MDReport Verified Date/Time: 02/05/2019 10:13:50 Reading Location: [address] Neuro Reading Room MR, MRA, NECK, WITHOUT IV [id number] 10:13:00Reason for exam:->Ischemic Stroke EvaluationFINAL REPORT MRA Head CLINICAL HISTORY: Stroke TECHNIQUE: MRA of the head utilizing 3-D qhlo-hj-sffhbz technique, with 3 -D reconstructions. COMPARISON: None FINDINGS: There is noevidence for a deering of Treadwell proximal branch vessel occlusion. There is a origin of the right posterior cerebral artery with severe proximal stenosis. There is moderate stenosis of the right middle cerebral artery and mild stenosis of the left middle cerebral artery. There is severe stenosis of the right intradural vertebral artery. The nondominant left intradural vertebral artery is diminutive. There is a 2.5 mm aneurysm projecting medially from the right paraclinoid internal carotid artery, involving the superior hypophyseal segment. 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 No evidence for a deering of Treadwell proximal branch vessel occlusion. Multifocal intracranial atherosclerotic disease. MRA Neck CLINICAL HISTORY: Stroke TECHNIQUE: MRA of the neck utilizing 2-D and 3-D vqmt-bm-hxbxuc technique , with 3-D reconstructions. COMPARISON: None FINDINGS: The carotid arteries inthe neck are patent including their bifurcations. There is antegrade flow in the vertebral arteries in the neck. The nondominant left vertebral artery is diminutive throughout. IMPRESSION: No evidence of hemodynamically significant stenosis in the cervical carotid or vertebral arteries by NASCET criteria. Signed: Lilia Lewis [facility] Verified Date/Time: 02/05/2019 10:13:50 Reading Location: [address] Neuro Reading Room MR, BRAIN, WITHOUT [id number] 10:00: 00Reason for exam:->left-sided weakness, speech difficultiesAnesthesia:-> NoneFINAL REPORT MRI Brain without contrast Clinical History: Muscle weakness (generalized)left-sided weakness, speech difficulties Technique: MRI of the brain utilizing axial T2, FLAIR, GRE, DWI; sagittal and coronal T1-weighted images. Comparisons: None Findings: There is an acuteinfarct involving the right posterior basal ganglia and posterior limb internal capsule. This is superimposed upon a chronic right basal ganglia infarct. There is a chronic infarct of the left basal ganglia. Both chronic basal ganglia infarcts demonstrate hemosiderin staining. Punctate hemosiderin is also present in the lateral right thalamus. There is no acute hemorrhage. There is mild periventricular and subcortical white matter T2 hyperintensity, which is nonspecific but compatible with chronic microvascular ischemic change. There is mild generalized parenchymal volume loss without hydrocephalus, midline shift, or apparent mass effect. There are no extra-axial fluid collections. The major intracranial flow-voids appear patent. IMPRESSION: Acute infarct of the right basal ganglia posterior limbinternal capsule without hemorrhage. Chronic bilateral basal ganglia infarcts with hemosiderin staining. Punctate hemosiderin in the lateral right thalamus. Signed: Lilia Lewis MDReport Verified Date/Time: 02/05/2019 10:00:21 Reading Location: [address] Neuro Reading Room VITAMIN B12 AND [id number] 08:51:00 Test Item Value Reference Range Comments VITAMIN B12 (BEAKER) (test vspd=168) 747 pg/mL 213-816 FOLATE (BEAKER) (test gdsa=453) 19.1 ng/mL >=7.0 LIPID [id number] 07:01:00 Test Item Value Reference Range Comments TRIGLYCERIDES (BEAKER) (test bsqe=679) 123 mg/dL CHOLESTEROL (BEAKER) (test nzcn=579) 180 mg/dL HDL CHOLESTEROL (BEAKER) (test vzhn=960) 34 mg/dL LDL CHOLESTEROL CALCULATED (BEAKER) (test 121 mg/dL qnqh=665) Triglyceride Reference Range: Low Risk <150 Borderline 150- 199 High Risk 200-499 Very High Risk >=500Cholesterol Reference Range: Low Risk <200 Borderline 200-239 High Risk > 240HDL Cholesterol Reference Range: Low Risk >=60 High Risk <40LDL Cholesterol Reference Range: Optimal <100 Near Optimal 100-129 Borderline 130-159 High 160-189 Very High >=190 FastingBASIC METABOLIC [id number] 07:01:00 Test Item Value Reference Range Comments SODIUM (BEAKER) (test 139 meq/L 136-145 aofo=126) POTASSIUM (BEAKER) (test 3.8 meq/L 3.5-5.1 swhv=164) CHLORIDE (BEAKER) (test 109 meq/L 98-107 tddi=176) CO2 (BEAKER) (test 24 meq/L 22-29 trjb=683) BLOOD UREA NITROGEN 10 mg/dL 7-21 (BEAKER) (test ijtb=353) CREATININE (BEAKER) (test 0.67 mg/dL 0.57-1.25 cfkd=476) GLUCOSE RANDOM (BEAKER) 90 mg/dL 70-105 (test kwfg=958) CALCIUM (BEAKER) (test 8.3 mg/dL 8.4-10.2 dwkx=056) EGFR (BEAKER) (test 89 mL/min/1.73 sq m ESTIMATED GFR IS NOT merh=0333) ACCURATE CREATININE CLEARANCE IN PREDICTING GLOMERULAR FILTRATION RATE. ESTIMATED GFR IS NOT APPLICABLE FOR DIALYSIS PATIENTS. FastingCBC W/PLT COUNT & AUTO [id number] 06:24:00 Test Item Value Reference Range Comments WHITE BLOOD CELL COUNT (BEAKER) (test vgks=681) 8.1 K/ L 3.5-10.5 RED BLOOD CELL COUNT (BEAKER) (test heoo=159) 4.18 M/ L 3.93-5.22 HEMOGLOBIN (BEAKER) (test ktyk=716) 12.9 GM/DL 11.2-15.7 HEMATOCRIT (BEAKER) (test tiul=255) 38.5 % 34.1-44.9 MEAN CORPUSCULAR VOLUME (BEAKER) (test wmnb=399) 92.1 fL 79.4-94.8 MEAN CORPUSCULAR HEMOGLOBIN (BEAKER) (test 30.9 pg 25.6-32.2 pstx=007) MEAN CORPUSCULAR HEMOGLOBIN CONC (BEAKER) (test 33.5 GM/DL 32.2-35.5 isje=189) RED CELL DISTRIBUTION WIDTH (BEAKER) (test 13.2 % 11.7-14.4 domu=652) PLATELET COUNT (BEAKER) (test vtii=117) 194 K/CU MM 150-450 MEAN PLATELET VOLUME (BEAKER) (test wdry=062) 10.1 fL 9.4-12.3 NUCLEATED RED BLOOD CELLS (BEAKER) (test 0 /100 WBC 0-0 fdxz=718) NEUTROPHILS RELATIVE PERCENT (BEAKER) (test 54 % sims=691) LYMPHOCYTES RELATIVE PERCENT (BEAKER) (test 35 % naed=251) MONOCYTES RELATIVE PERCENT (BEAKER) (test 8 % uzmr=406) EOSINOPHILS RELATIVE PERCENT (BEAKER) (test 3 % kdjb=913) BASOPHILS RELATIVE PERCENT (BEAKER) (test 1 % cdum=931) NEUTROPHILS ABSOLUTE COUNT (BEAKER) (test 4.41 K/ L 1.56-6.13 olcb=750) LYMPHOCYTES ABSOLUTE COUNT (BEAKER) (test 2.81 K/ L 1.18-3.74 erik=895) MONOCYTES ABSOLUTE COUNT (BEAKER) (test 0.63 K/ L 0.24-0.36 fgtk=088) EOSINOPHILS ABSOLUTE COUNT (BEAKER) (test 0.21 K/ L 0.04-0.36 wsud=853) BASOPHILS ABSOLUTE COUNT (BEAKER) (test 0.05 K/ L 0.01-0.08 zcal=388) IMMATURE GRANULOCYTES-RELATIVE PERCENT (BEAKER) 0 % 0-1 (test iexh=9123) POCT-GLUCOSE [id number] 23:49:00 Test Item Value Reference Range Comments POC-GLUCOSE METER (BEAKER) 84 mg/dL 70-110 TESTED AT [address] (test zbpk=5265) [facility] [address] HEMOGLOBIN [id number] 21:59:00 Test Item Value Reference Range Comments HEMOGLOBIN A1C (BEAKER) (test soxw=564) 7.2 % 4.3-6.1 [id number] 20:09:00 Test Item Value Reference Range Comments HOMOCYSTEINE (BEAKER) (test ilbu=043) 7.3 umol/L 5.1-15.4 VITAMIN B12 AND [id number] 20:09:00 Test Item Value Reference Range Comments VITAMIN B12 (BEAKER) (test fsry=359) 768 pg/mL 213-816 FOLATE (BEAKER) (test wdbq=151) 17.9 ng/mL >=7.0 URINALYSIS [id number] 19:18:00 Test Item Value Reference Range Comments RBC UA (BEAKER) (test ivwi=088) 1 /HPF WBC UA (BEAKER) (test xbik=785) 5 /HPF MUCUS (BEAKER) (test tlnr=8762) Rare SQUAMOUS EPITHELIAL (BEAKER) (test iean=035) < /HPF URINALYSIS WITH MICROSCOPIC IF [id number] 19:16:00 Test Item Value Reference Range Comments COLOR (BEAKER) (test lxkx=838) Light Yellow CLARITY (BEAKER) (test drvt=112) Clear SPECIFIC GRAVITY UA (BEAKER) (test runc=529) 1.007 1.001-1.035 PH UA (BEAKER) (test tvbc=655) 6.5 5.0-8.0 PROTEIN UA (BEAKER) (test oyxc=808) Negative Negative GLUCOSE UA (BEAKER) (test hvbl=554) Negative Negative KETONES UA (BEAKER) (test mdci=042) Trace Negative BILIRUBIN UA (BEAKER) (test ztia=253) Negative Negative BLOOD UA (BEAKER) (test gxjq=533) Negative Negative NITRITE UA (BEAKER) (test vdpm=785) Negative Negative LEUKOCYTE ESTERASE UA (BEAKER) (test siuw=620) Moderate Negative UROBILINOGEN UA (BEAKER) (test mxdf=929) 0.2 mg/dL 0.2-1.0 SOURCE(BEAKER) (test uucp=7482) TSH/FREE T4 IF [id number] 14:08:00 Test Item Value Reference Range Comments THYROID STIMULATING HORMONE (BEAKER) (test 0.91 uIU/mL 0.35-4.94 cgkr=907) POCT-GLUCOSE [id number] 13:51:00 Test Item Value Reference Range Comments POC-GLUCOSE METER (BEAKER) 103 mg/dL 70-[address] [facility] [address] (test usxu=8425) [facility] [address]
[2019-04-28 23:05] LABS: Absolute Lymphocytes (CBC) 2.5 K/uL (0.7-4.9); Basophils % 1.1 % (0-1.3); Lymphocytes % 27.3 % (15.3-44.8); MPV 9.2 fL (7.6-11.3); RBC Red Blood Cell Count 4.64 M/uL (3.86-4.86)
[2019-04-28 23:06] LABS: Protime INR 1.15
[2019-04-28 23:23] LABS: ALT/SGPT 26 U/L (12-78); AST/SGOT 29 U/L (15-37); Albumin 3.8 g/dL (3.4-5.0); Alkaline Phosphatase 120 U/L (45-117); BUN Blood Urea Nitrogen 9 mg/dL (7-18); Bicarbonate 30 mmol/L (21-32); Bilirubin Direct 0.2 mg/dL (0-0.2); Bilirubin Total 0.7 mg/dL (0.2-1.0); Glucose Level 88 mg/dL (74-106); Magnesium 1.7 mg/dL (1.8-2.4); NT PRO-BNP 134 pg/mL (<125); Potassium 3.5 mmol/L (3.5-5.1); Protein, Total 7.5 g/dL (6.4-8.2); Sodium Level 137 mmol/L (136-145); Troponin (Emerg Dept Use Only) < 0.02 ng/mL (0.0-0.045)
--- NOTE | 2019-04-29 01:37 | ER ---
Nurse's Notes [facility] Name: Tami Martínez Age: 64 yrs Sex: Female : 1955 Arrival Date: 04/28/2019 Time: 21:34 Bed 27 Private MD: Diagnosis: HYPERTENSIVE URGENCY Presentation: 04/28 21:40 Presenting complaint: Child states: at 1230 pm today during Physical therapy her BP was ca1 168/102. When I took her BP 30 minutes ago it was 182/98. She had 2 previous strokes and the last 1 was 2 months ago. 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 She also complains of pain on the L side of her head (pointing at the temporal area). She also has been vomiting all day. Denies fever. Transition of care: patient was not received from another setting of care. Onset of symptoms was April 28, 2019. Risk Assessment: Do you want to hurt yourself or someone else? Patient reports no desire to harm self or others. Initial Sepsis Screen: Does the patient meet any 2 criteria? No. Patient's initial sepsis screen is negative. Does the patient have a suspected source of infection? No. Patient's initial sepsis screen is negative. Care prior to arrival: None. 21:40 Method Of Arrival: Wheelchair ca1 21:40 Acuity: FRANKY 3 ca1 Historical: - Allergies: 21:52 No Known Allergies; ca1 - PMHx: 21:52 Diabetes - NIDDM; Hypertension; TIA; CVA; CHF; Arthritis; ca1 - PSHx: 21:52 Tubal ligation; ca1 - Immunization history:: Adult Immunizations up to date, Flu vaccine is up to date. - Social history:: Smoking status: Patient/guardian denies using tobacco. - Ebola Screening: : Patient negative for fever greater than or equal to 101.5 degrees Fahrenheit, and additional compatible Ebola Virus Disease symptoms Patient denies exposure to infectious person Patient denies travel to an Ebola-affected area in the 21 days before illness onset No symptoms or risks identified at this time. Screenin:03 Abuse screen: Denies threats or abuse. Denies injuries from another. Nutritional rv screening: No deficits noted. Tuberculosis screening: No symptoms or risk factors identified. Fall Risk None identified. Assessment: 23:02 Reassessment: Patient appears in no apparent distress at this time. General: Appears in rv no apparent distress. Behavior is calm. Pain: Denies pain. Neuro: Level of Consciousness is awake, alert, obeys commands, Oriented to person, place, time, situation. Cardiovascular: Patient's skin is warm and dry. Respiratory: Airway is patent. GI: No signs and/or symptoms were reported involving the gastrointestinal system. : No signs and/or symptoms were reported regarding the genitourinary system. EENT: No signs and/or symptoms were reported regarding the EENT system. Derm: Skin is intact. Musculoskeletal: left hand decorticate. 04/29 00:14 Reassessment: Patient appears in no apparent distress at this time. Patient and/or rv family updated on plan of care and expected duration. Pain level reassessed. Patient is alert, oriented x 3, equal unlabored respirations, skin warm/dry/pink. Patient states symptoms have improved. 01:16 Reassessment: Patient appears in no apparent distress at this time. Patient and/or rv family updated on plan of care and expected duration. Pain level reassessed. Patient is alert, oriented x 3, equal unlabored respirations, skin warm/dry/pink. Vital Signs: 04/28 21:52 BP 155 / 72; Pulse 85; Resp 17 S; Temp 98.7(O); Pulse Ox 97% on R/A; Weight 69.85 kg ca1 (R); Height 4 ft. 11 in. (149.86 cm) (R); Pain 3/10; 22:15 BP 173 / 106; Pulse 77; Resp 18; Pulse Ox 97% on R/A; rv 23:00 BP 141 / 94; Pulse 85; Resp 16; Pulse Ox 100% ; rv 04/29 00:00 BP 131 / 68; Pulse 68; Resp 17; Pulse Ox 98% on R/A; rv 01:16 BP 143 / 66; Pulse 83; Resp 18; Pulse Ox 98% on R/A; rv 04/28 21:52 Body Mass Index 31.10 (69.85 kg, 149.86 cm) ca1 ED Course: 04/28 21:34 Patient arrived in ED. ag3 21:41 Salinas Oliveros MD is Attending Physician. tw4 21:52 Triage completed. ca1 21:52 Arm band placed on right wrist. ca1 22:15 Moe Zambrano, RN is Primary Nurse. rv 23:03 Patient has correct armband on for positive identification. Bed in low position. Call rv light in reach. Side rails up X 1. diabetes educator on. Pulse ox on. NIBP on. 23:04 Inserted saline lock: 20 gauge in right antecubital area, using aseptic technique. rv Blood collected. 23:04 No provider procedures requiring assistance completed. rv 04/29 00:[address] via stretcher. 00:26 CT completed. Patient tolerated procedure well. Patient moved back from CT. 00:44 CT Head Brain wo Cont In Process Unspecified. EDMS 01:33 Salinas Oliveros MD is Referral Physician. tw4 01:47 IV discontinued, intact, bleeding controlled, No redness/swelling at site. Pressure rv dressing applied. Administered Medications: 01:47 Not Given (not indicated): cloNIDine 0.1 mg PO once rv Outcome: 01:35 Discharge ordered by . tw4 01:47 Discharged to home via wheelchair, with family. rv 01:47 Condition: good 01:47 Discharge instructions given to family, Instructed on discharge instructions, follow up and referral plans. Demonstrated understanding of instructions, follow-up care. 01:47 Patient left the ED. rv Signatures: Dispatcher [employer] EDDE Pollo Jackson Salinas Oliveros MD MD tw4 Moe Zambrano, RN RN Karolina Pimentel3 Kindra Zamora RN RN ca1
--- NOTE | 2019-04-29 01:37 | EDPHYS ---
Physician Documentation [facility] Name: Tami Martínez Age: 64 yrs Sex: Female : 1955 Arrival Date: 04/28/2019 Time: 21:34 Bed 27 Private MD: ED Physician Salinas Oliveros HPI: 04/29 04:59 This 64 yrs old Female presents to ER via Wheelchair with complaints of High tw4 Blood Pressure. 04:59 The patient has elevated blood pressure and discovered this at home, with a home tw4 device. Onset: The symptoms/episode began/occurred just prior to arrival. Modifying factors:. Associated signs and symptoms: The patient has no apparent associated signs or symptoms. The patient has not experienced similar symptoms in the past. Historical: - Allergies: 04/28 21:52 No Known Allergies; ca1 - PMHx: 21:52 Diabetes - NIDDM; Hypertension; TIA; CVA; CHF; Arthritis; ca1 - PSHx: 21:52 Tubal ligation; ca1 - Immunization history:: Adult Immunizations up to date, Flu vaccine is up to date. - Social history:: Smoking status: Patient/guardian denies using tobacco. - Ebola Screening: : Patient negative for fever greater than or equal to 101.5 degrees Fahrenheit, and additional compatible Ebola Virus Disease symptoms Patient denies exposure to infectious person Patient denies travel to an Ebola-affected area in the 21 days before illness onset No symptoms or risks identified at this time. ROS: 04/29 05:17 Constitutional: Negative for fever, chills, and weight loss, Eyes: Negative for injury, tw4 pain, redness, and discharge, Cardiovascular: Negative for chest pain, palpitations, and edema, Respiratory: Negative for shortness of breath, cough, wheezing, and pleuritic chest pain, Abdomen/GI: Negative for abdominal pain, nausea, vomiting, diarrhea, and constipation, Back: Negative for injury and pain, MS/Extremity: Negative for injury and deformity, Skin: Negative for injury, rash, and discoloration, Neuro: Negative for headache, weakness, numbness, tingling, and seizure. Exam: 05:17 Constitutional: This is a well developed, well nourished patient who is awake, alert, tw4 and in no acute distress. Head/Face: Normocephalic, atraumatic. Chest/axilla: Normal chest wall appearance and motion. Nontender with no deformity. No lesions are appreciated. Cardiovascular: Regular rate and rhythm with a normal S1 and S2. No gallops, murmurs, or rubs. Normal PMI, no JVD. No pulse deficits. Respiratory: Lungs have equal breath sounds bilaterally, clear to auscultation and percussion. No rales, rhonchi or wheezes noted. No increased work of breathing, no retractions or nasal flaring. Abdomen/GI: Soft, non-tender, with normal bowel sounds. No distension or tympany. No guarding or rebound. No evidence of tenderness throughout. Back: No spinal tenderness. No costovertebral tenderness. Full range of motion. MS/ Extremity: Pulses equal, no cyanosis. Neurovascular intact. Full, normal range of motion. Neuro: Awake and alert, GCS 15, oriented to person, place, time, and situation. Cranial nerves II-XII grossly intact. Motor strength 5/5 in all extremities. Sensory grossly intact. Cerebellar exam normal. Normal gait. Vital Signs: 04/28 21:52 BP 155 / 72; Pulse 85; Resp 17 S; Temp 98.7(O); Pulse Ox 97% on R/A; Weight 69.85 kg ca1 (R); Height 4 ft. 11 in. (149.86 cm) (R); Pain 3/10; 22:15 BP 173 / 106; Pulse 77; Resp 18; Pulse Ox 97% on R/A; rv 23:00 BP 141 / 94; Pulse 85; Resp 16; Pulse Ox 100% ; rv 04/29 00:00 BP 131 / 68; Pulse 68; Resp 17; Pulse Ox 98% on R/A; rv 01:16 BP 143 / 66; Pulse 83; Resp 18; Pulse Ox 98% on R/A; rv 04/28 21:52 Body Mass Index 31.10 (69.85 kg, 149.86 cm) ca1 MDM: 04/28 21:41 Patient medically screened. tw4 04/29 05:17 Differential diagnosis: hypertensive crisis, Malignant HTN. Data reviewed: vital signs, tw4 nurses notes. Data reviewed: lab test result(s), CBC, white blood cell count, hemoglobin, hematocrit, platelets, electrolytes, sodium, potassium, chloride, serum bicarbonate, BUN, creatinine, serum glucose, hepatic panel. Data interpreted: awake overnight monitor: rhythm is normal sinus rhythm, Pulse oximetry: Interpretation: normal. Test interpretation: by ED physician or midlevel provider: ECG, plain radiologic studies. Counseling: I had a detailed discussion with the patient and/or guardian regarding: the historical points, exam findings, and any diagnostic results supporting the discharge/admit diagnosis, lab results. Special discussion: I discussed with the patient/guardian in detail that at this point there is no indication for admission to the hospital. It is understood, however, that if the symptoms persist or worsen the patient needs to return immediately for re-evaluation. 04/28 22:46 Order name: Basic Metabolic Panel; Complete Time: 23:36 tw4 04/28 23:37 Interpretation: Normal except: CRE 0.44; CL 101. tw4 04/28 22:46 Order name: CBC with Diff; Complete Time: 23:36 tw4 04/28 22:46 Order name: LFT's; Complete Time: 23:36 04/28 22:46 Order name: Magnesium; Complete Time: 23:36 4 04/28 22:46 Order name: NT PRO-BNP; Complete Time: 23:36 4 04/28 22:46 Order name: PT-INR; Complete Time: 23:36 4 04/28 22:46 Order name: Troponin (emerg Dept Use Only); Complete Time: 23:36 tw4 04/28 22:46 Order name: EKG; Complete Time: 22:46 04/28 22:46 Order name: Cardiac monitoring; Complete Time: 23:02 04/28 22:46 Order name: EKG - Nurse/Tech; Complete Time: 23:02 4 04/28 22:46 Order name: IV Saline Lock; Complete Time: 23:02 04/28 22:46 Order name: Labs collected and sent; Complete Time: 23:02 4 04/28 23:41 Order name: CT Head Brain wo Cont 04/28 22:46 Order name: O2 Per Protocol; Complete Time: 23:02 04/28 22:46 Order name: O2 Sat Monitoring; Complete Time: 23:02 tw4 EC:17 Rate is 76 beats/min. Rhythm is regular. Left axis deviation noted. ME interval is tw4 normal. QRS interval is normal. QT interval is normal. No Q waves. T waves are Flattened in leads III, V1. No ST changes noted. Clinical impression: NSR w/ Non-specific ST/T Changes. Interpreted by me. Reviewed by me. Administered Medications: 01:47 Not Given (not indicated): cloNIDine 0.1 mg PO once rv Disposition: 04/29/19 01:35 Discharged to Home. Impression: HYPERTENSIVE URGENCY. - Condition is Stable. - Discharge Instructions: Hypertension. - Medication Reconciliation Form, Thank You Letter, Antibiotic Education, Prescription Opioid Use form. - Follow up: Private Physician; When: Upon discharge from the Emergency Department; Reason: Recheck today's complaints, Continuance of care. Follow up: Salinas Oliveros MD; When: Upon discharge from the Emergency Department; Reason: Recheck today's complaints, Continuance of care. - Problem is new. - Symptoms have improved. Signatures: Dispatcher [employer] EDMS Salinas Oliveros MD MD tw4 Moe Zambrano RN RN Kindra Zamora RN RN ca1 Corrections: (The following items were deleted from the chart) 01:47 01:35 04/29/2019 01:35 Discharged to Home. Impression: HYPERTENSIVE URGENCY. Condition rv is Stable. Forms are Medication Reconciliation Form, Thank You Letter, Antibiotic Education, Prescription Opioid Use. Follow up: Private Physician; When: Upon discharge from the Emergency Department; Reason: Recheck today's complaints, Continuance of care. Follow up: Salinas Oliveros; When: Upon discharge from the Emergency Department; Reason: Recheck today's complaints, Continuance of care. Problem is new. Symptoms have improved. tw4
[2019-04-29 05:38] VITALS: TEMP 98.7
[2019-04-29 05:42] VITALS: O2SAT 98
[2019-04-29 05:43] VITALS: BP 143/66
--- NOTE | 2019-04-29 10:58 | RAD REPORT ---
EXAM DESCRIPTION: CT - Head Brain Wo Cont - 04/29/2019 1:28 am CLINICAL HISTORY: Slurred speech. COMPARISON: 02/03/2019 TECHNIQUE: CT scan of the brain without IV contrast. This exam was performed according to our depa rtmental dose-optimization program, which includes automated exposure control, adjustment of the mA a nd/or kV according to patient size and/or use of iterative reconstruction technique. FINDINGS: There are multiple old bilateral basal ganglia lacunar infarcts. There are scattered areas of hypoattenuation within the periventricular white matter, which likely represent chronic microvasc ular ischemia. No evidence of acute infarction, intracranial hemorrhage, extra-axial fluid collection , or midline shift. No air-fluid levels are seen in the paranasal sinuses to suggest acute sinusitis. No depressed skull fracture. IMPRESSION: No acute intracranial findings are seen. Please note that MRI is more sensitive for the evaluation of early infarction, and may be performed i f there is high clinical concern. Electronically signed by: Dru Cervantes MD 04/29/2019 12:50 AM ORGANISATIONAL PSYCHOLOGIST Due to temporary technical issues with the PACS/Fluency reporting system, reports are being signed by the in house radiologist as a courtesy to ensure prompt reporting. The interpreting radiologist is f ully responsible for the content of the report.
--- NOTE | 2019-04-29 12:43 | EKG ---
Test Date: 2019-04-28 Test Time: 22:55:33 Manager [employer]: RV MEASUREMENT RESULTS: Intervals: Rate: 76 IL: 174 QRSD: 88 QT: 434 QTc: 488 [place]: P: 54 IL: 174 QRS: -73 T: 56 INTERPRETIVE STATEMENTS: Normal sinus rhythm Left axis deviation Cannot rule out Anterior infarct, age undetermined Abnormal ECG Compared to ECG 02/04/2019 02:29:56 Left-axis deviation now present Myocardial infarct finding still present Electronically Signed On 04-29-19 12:41:35 FOOD SAFETY DIRECTOR by Larry Rao
== END 2019-04-29 01:47 | disposition home or self-care (01) ==
LOC: ER 21:32
DX: I16.0 Hypertensive urgency (principal); I50.9 Heart failure, unspecified
CPT/HCPCS: 36415; 70450; 80048; 80076; 83735; 83880; 84484; 85025; 85610; 93005; 99285

== ENCOUNTER 2019-06-01 20:59 | Emergency (ER) | payer OTHER ==
--- OUTSIDE RECORDS SUMMARY | 2019-06-01 21:02 | XMS REPORT ---
:1955 [facility] [address] [place] [address] Dr[address] Rodriguez [address] [place] [address] Care Team Providers Name Role Phone DIANN RICEEOMA Unavailable Unavailable Problems This patient has no known problems. Allergies, Adverse Reactions, Alerts This patient has no known allergies or adverse reactions. Medications This patient has no known medications. Encounters Start End Encounter Admission Attending Care Care Encounter Date/Time Date/Time Type Type Clinicians Facility Department ID 2018-03-03 2018-03-[address] [facility] [id number] 00:00:00 00:00:00 2018-03-03 2018-03-[address] [facility] [id number] 00:00:00 00:00:00 2018-01-21 2018-01-[address] [facility] [id number] 00:00:00 00:00:00 2018 [address] [facility] [id number] 14:49:14 14:49:14 2017-12-29 2017-12-[address] [facility] [id number] 00:00:00 00:00:00 2017-11-19 2017-11-[address] [facility] [id number] 00:00:00 00:00:00 2017-11-05 2017-11-[address] [facility] [id number] 00:00:00 00:00:00 2017-10-28 2017-10-[address] [facility] [id number] 00:00:00 00:00:00 2017-07-11 2017-07-[address] [facility] [id number] 00:00:00 00:00:00 Results Test Description Test Time Test Comments Text Results Atomic Results Result Comments POCT-GLUCOSE METER 2019-02-10 08:36:00 Test Item Value Reference Range Comments POC-GLUCOSE METER (BEAKER) (test 134 mg/dL 70-110 TESTED AT [address] bhzj=8785) [facility] [address] BASIC METABOLIC [id number] 06:41:00 Test Item Value Reference Range Comments SODIUM (BEAKER) (test 140 meq/L 136-145 qdjd=884) POTASSIUM (BEAKER) (test 3.8 meq/L 3.5-5.1 mlll=266) CHLORIDE (BEAKER) (test 107 meq/L 98-107 uwtm=337) CO2 (BEAKER) (test 25 meq/L 22-29 naio=911) BLOOD UREA NITROGEN 13 mg/dL 7-21 (BEAKER) (test xiyk=960) CREATININE (BEAKER) (test 0.68 mg/dL 0.57-1.25 cohq=146) GLUCOSE RANDOM (BEAKER) 112 mg/dL 70-105 (test rhvx=097) CALCIUM (BEAKER) (test 9.0 mg/dL 8.4-10.2 scvf=049) EGFR (BEAKER) (test 87 mL/min/1.73 sq m ESTIMATED GFR IS NOT afuw=9358) ACCURATE CREATININE CLEARANCE IN PREDICTING GLOMERULAR FILTRATION RATE. ESTIMATED GFR IS NOT APPLICABLE FOR DIALYSIS PATIENTS. POCT-GLUCOSE [id number] 21:31:00 Test Item Value Reference Range Comments POC-GLUCOSE METER (BEAKER) 112 mg/dL 70-110 TESTED AT [address] (test kfds=1681) [place] [address] POCT-GLUCOSE [id number] 16:38:00 Test Item Value Reference Range Comments POC-GLUCOSE METER (BEAKER) 102 mg/dL 70-110 TESTED AT [address] (test hmbe=9424) [place] [address] POCT-GLUCOSE [id number] 08:41:00 Test Item Value Reference Range Comments POC-GLUCOSE METER (BEAKER) 91 mg/dL 70-110 TESTED AT [address] (test lcsi=2940) [place] [address] POCT-GLUCOSE [id number] 06:49:00 Test Item Value Reference Range Comments POC-GLUCOSE METER (BEAKER) 106 mg/dL 70-110 TESTED AT [address] (test thau=1545) [place] [address] BASIC METABOLIC [id number] 04:23:00 Test Item Value Reference Range Comments SODIUM (BEAKER) (test 137 meq/L 136-145 fzgw=313) POTASSIUM (BEAKER) (test 4.0 meq/L 3.5-5.1 zshd=278) CHLORIDE (BEAKER) (test 106 meq/L 98-107 wpxc=547) CO2 (BEAKER) (test 24 meq/L 22-29 lqbg=620) BLOOD UREA NITROGEN 13 mg/dL 7-21 (BEAKER) (test acly=102) CREATININE (BEAKER) (test 0.69 mg/dL 0.57-1.25 uche=421) GLUCOSE RANDOM (BEAKER) 150 mg/dL 70-105 (test ydqn=502) CALCIUM (BEAKER) (test 8.7 mg/dL 8.4-10.2 qhtx=470) EGFR (BEAKER) (test 86 mL/min/1.73 sq m ESTIMATED GFR IS NOT aexb=4665) ACCURATE CREATININE CLEARANCE IN PREDICTING GLOMERULAR FILTRATION RATE. ESTIMATED GFR IS NOT APPLICABLE FOR DIALYSIS PATIENTS. POCT-GLUCOSE [id number] 21:45:00 Test Item Value Reference Range Comments POC-GLUCOSE METER (BEAKER) 129 mg/dL 70-110 TESTED AT [address] (test ahgg=8164) [place] [address] POCT-GLUCOSE [id number] 18:16:00 Test Item Value Reference Range Comments POC-GLUCOSE METER (BEAKER) 94 mg/dL 70-110 TESTED AT [address] (test kvkw=2721) [place] [address] POCT-GLUCOSE [id number] 12:50:00 Test Item Value Reference Range Comments POC-GLUCOSE METER (BEAKER) 122 mg/dL 70-110 TESTED AT [address] (test swhk=0674) [place] [address] POCT-GLUCOSE [id number] 09:50:00 Test Item Value Reference Range Comments POC-GLUCOSE METER (BEAKER) 94 mg/dL 70-110 TESTED AT [address] (test gefu=1873) [place] [address] BASIC METABOLIC [id number] 06:34:00 Test Item Value Reference Range Comments SODIUM (BEAKER) (test 138 meq/L 136-145 fsdw=001) POTASSIUM (BEAKER) (test 4.0 meq/L 3.5-5.1 ueud=626) CHLORIDE (BEAKER) (test 106 meq/L 98-107 akmo=107) CO2 (BEAKER) (test 25 meq/L 22-29 xosd=358) BLOOD UREA NITROGEN 12 mg/dL 7-21 (BEAKER) (test biir=321) CREATININE (BEAKER) (test 0.68 mg/dL 0.57-1.25 kzvl=965) GLUCOSE RANDOM (BEAKER) 119 mg/dL 70-105 (test zhtp=160) CALCIUM (BEAKER) (test 9.1 mg/dL 8.4-10.2 rsav=510) EGFR (BEAKER) (test 87 mL/min/1.73 sq m ESTIMATED GFR IS NOT dkza=0339) ACCURATE CREATININE CLEARANCE IN PREDICTING GLOMERULAR FILTRATION RATE. ESTIMATED GFR IS NOT APPLICABLE FOR DIALYSIS PATIENTS. POCT-GLUCOSE [id number] 06:23:00 Test Item Value Reference Range Comments POC-GLUCOSE METER (BEAKER) 134 mg/dL 70-110 TESTED AT [address] (test pmoo=5005) [place] [id number] POCT-GLUCOSE [id number] 00:08:00 Test Item Value Reference Range Comments POC-GLUCOSE METER (BEAKER) 99 mg/dL 70-110 TESTED AT [address] (test rnww=9525) [place] [address] POCT-GLUCOSE [id number] 10:01:00 Test Item Value Reference Range Comments POC-GLUCOSE METER (BEAKER) 118 mg/dL 70-110 TESTED AT [address] (test qlnn=0970) [facility] [address] BASIC METABOLIC [id number] 06:36:00 Test Item Value Reference Range Comments SODIUM (BEAKER) (test 139 meq/L 136-145 sltm=131) POTASSIUM (BEAKER) (test 3.7 meq/L 3.5-5.1 zzns=854) CHLORIDE (BEAKER) (test 107 meq/L 98-107 vwdl=438) CO2 (BEAKER) (test 23 meq/L 22-29 semu=716) BLOOD UREA NITROGEN 12 mg/dL 7-21 (BEAKER) (test vpui=913) CREATININE (BEAKER) (test 0.69 mg/dL 0.57-1.25 hztf=939) GLUCOSE RANDOM (BEAKER) 111 mg/dL 70-105 (test mspm=403) CALCIUM (BEAKER) (test 9.1 mg/dL 8.4-10.2 dccf=558) EGFR (BEAKER) (test 86 mL/min/1.73 sq m ESTIMATED GFR IS NOT zvtt=2592) ACCURATE CREATININE CLEARANCE IN PREDICTING GLOMERULAR FILTRATION RATE. ESTIMATED GFR IS NOT APPLICABLE FOR DIALYSIS PATIENTS. POCT-GLUCOSE [id number] 06:29:00 Test Item Value Reference Range Comments POC-GLUCOSE METER (BEAKER) 96 mg/dL 70-110 TESTED AT [address] (test gufs=9348) [facility] [address] POCT-GLUCOSE [id number] 21:44:00 Test Item Value Reference Range Comments POC-GLUCOSE METER (BEAKER) 131 mg/dL 70-110 TESTED AT [address] (test qnsm=9041) [place] [id number] POCT-GLUCOSE [id number] 17:40:00 Test Item Value Reference Range Comments POC-GLUCOSE METER (BEAKER) 145 mg/dL 70-110 TESTED AT [address] (test dwld=4752) [facility] [address] POCT-GLUCOSE [id number] 13:02:00 Test Item Value Reference Range Comments POC-GLUCOSE METER (BEAKER) 108 mg/dL 70-110 TESTED AT [address] (test rbzn=5952) [facility] [address] POCT-GLUCOSE [id number] 08:49:00 Test Item Value Reference Range Comments POC-GLUCOSE METER (BEAKER) 106 mg/dL 70-110 TESTED AT [address] (test zwgu=0179) [facility] [address] POCT-GLUCOSE [id number] 06:02:00 Test Item Value Reference Range Comments POC-GLUCOSE METER (BEAKER) 99 mg/dL 70-110 TESTED AT [address] (test scct=6248) [facility] [address] POCT-GLUCOSE [id number] 00:54:00 Test Item Value Reference Range Comments POC-GLUCOSE METER (BEAKER) 120 mg/dL 70-110 TESTED AT [address] (test qdss=8090) [facility] [address] POCT-GLUCOSE [id number] 12:27:00 Test Item Value Reference Range Comments POC-GLUCOSE METER (BEAKER) 113 mg/dL 70-110 TESTED AT [facility] [address] (test whsw=9494) [facility] [address] [id number] 11:05:00 Test Item Value Reference Range Comments RPR SCREEN (MOHINDER) (test mvei=699) Nonreactive Nonreactive MR, MRA, BRAIN, WITHOUT [id number] 10:13:00Reason for exam:-> Ischemic Stroke EvaluationFINAL REPORT MRA Head CLINICAL HISTORY: Stroke TECHNIQUE: MRA of the head utilizing 3-D vbxu-ro-xgzdam technique, with 3-D reconstructions. COMPARISON: None FINDINGS: There is noevidence for a [place] proximal branch vessel occlusion. There [...] -up is warranted. No evidence for a [place] proximal branch vessel occlusion. Multifocal [...] MDReport Verified Date/Time: 02/05/2019 10:13:50 Reading Location: [address] Neuro Reading Room MR, MRA, NECK, WITHOUT IV [id number] 10:13:00Reason for exam:->Ischemic Stroke EvaluationFINAL REPORT MRA Head CLINICAL HISTORY: Stroke TECHNIQUE: MRA of the head utilizing 3-D szbg-ho-trjmst technique, with 3 -D reconstructions. COMPARISON: None FINDINGS: There is noevidence for a [place] proximal branch vessel occlusion. There [...] follow-up is warranted. No evidence for a [place] proximal branch vessel occlusion. Multifocal intracranial atherosclerotic disease. MRA Neck CLINICAL HISTORY: Stroke TECHNIQUE: MRA of the neck utilizing 2-D and 3-D ctow-in-jsvupq technique , with 3-D reconstructions. COMPARISON: None FINDINGS: The carotid arteries inthe neck are patent including their bifurcations. There is antegrade flow in the vertebral arteries in the neck. The nondominant left vertebral artery is diminutive throughout. IMPRESSION: No evidence of hemodynamically significant stenosis in the cervical carotid or vertebral arteries by NASCET criteria. Signed: Lilia Lewis [facility] Verified Date/Time: 02/05/2019 10:13:50 Reading Location: [address] Neuro Reading Room MR, BRAIN, WITHOUT [id number] 10:00: 00Reason for exam:->left-sided weakness, speech difficultiesAnesthesia:-> [...] MDReport Verified Date/Time: 02/05/2019 10:00:21 Reading Location: [address] Neuro Reading Room VITAMIN B12 AND [id number] 08:51:00 Test Item Value Reference Range Comments VITAMIN B12 (BEAKER) (test fprc=265) 747 pg/mL 213-816 FOLATE (BEAKER) (test ceyg=836) 19.1 ng/mL >=7.0 LIPID [id number] 07:01:00 Test Item Value Reference Range Comments TRIGLYCERIDES (BEAKER) (test bgea=760) 123 mg/dL CHOLESTEROL (BEAKER) (test dxli=638) 180 mg/dL HDL CHOLESTEROL (BEAKER) (test kacf=242) 34 mg/dL LDL CHOLESTEROL CALCULATED (BEAKER) (test 121 mg/dL yuoy=661) Triglyceride Reference Range: Low Risk <150 Borderline 150- 199 High Risk 200-499 Very High Risk >=500Cholesterol Reference Range: Low Risk <200 Borderline 200-239 High Risk > 240HDL Cholesterol Reference Range: Low Risk >=60 High Risk <40LDL Cholesterol Reference Range: Optimal <100 Near Optimal 100-129 Borderline 130-159 High 160-189 Very High >=190 FastingBASIC METABOLIC [id number] 07:01:00 Test Item Value Reference Range Comments SODIUM (BEAKER) (test 139 meq/L 136-145 kqfc=405) POTASSIUM (BEAKER) (test 3.8 meq/L 3.5-5.1 xapz=198) CHLORIDE (BEAKER) (test 109 meq/L 98-107 cjha=443) CO2 (BEAKER) (test 24 meq/L 22-29 tjrv=874) BLOOD UREA NITROGEN 10 mg/dL 7-21 (BEAKER) (test gzth=553) CREATININE (BEAKER) (test 0.67 mg/dL 0.57-1.25 oiig=528) GLUCOSE RANDOM (BEAKER) 90 mg/dL 70-105 (test hzni=803) CALCIUM (BEAKER) (test 8.3 mg/dL 8.4-10.2 gpzu=108) EGFR (BEAKER) (test 89 mL/min/1.73 sq m ESTIMATED GFR IS NOT ccyj=7205) ACCURATE CREATININE CLEARANCE IN PREDICTING GLOMERULAR FILTRATION RATE. ESTIMATED GFR IS NOT APPLICABLE FOR DIALYSIS PATIENTS. FastingCBC W/PLT COUNT & AUTO [id number] 06:24:00 Test Item Value Reference Range Comments WHITE BLOOD CELL COUNT (BEAKER) (test ifor=453) 8.1 K/ L 3.5-10.5 RED BLOOD CELL COUNT (BEAKER) (test mkbg=921) 4.18 M/ L 3.93-5.22 HEMOGLOBIN (BEAKER) (test tagu=821) 12.9 GM/DL 11.2-15.7 HEMATOCRIT (BEAKER) (test zrle=616) 38.5 % 34.1-44.9 MEAN CORPUSCULAR VOLUME (BEAKER) (test vacp=230) 92.1 fL 79.4-94.8 MEAN CORPUSCULAR HEMOGLOBIN (BEAKER) (test 30.9 pg 25.6-32.2 jply=258) MEAN CORPUSCULAR HEMOGLOBIN CONC (BEAKER) (test 33.5 GM/DL 32.2-35.5 adee=438) RED CELL DISTRIBUTION WIDTH (BEAKER) (test 13.2 % 11.7-14.4 ecko=626) PLATELET COUNT (BEAKER) (test wqdq=548) 194 K/CU MM 150-450 MEAN PLATELET VOLUME (BEAKER) (test fvqy=906) 10.1 fL 9.4-12.3 NUCLEATED RED BLOOD CELLS (BEAKER) (test 0 /100 WBC 0-0 lebd=072) NEUTROPHILS RELATIVE PERCENT (BEAKER) (test 54 % gkpu=307) LYMPHOCYTES RELATIVE PERCENT (BEAKER) (test 35 % awhl=120) MONOCYTES RELATIVE PERCENT (BEAKER) (test 8 % bncc=853) EOSINOPHILS RELATIVE PERCENT (BEAKER) (test 3 % ljsn=469) BASOPHILS RELATIVE PERCENT (BEAKER) (test 1 % ursv=193) NEUTROPHILS ABSOLUTE COUNT (BEAKER) (test 4.41 K/ L 1.56-6.13 zunf=667) LYMPHOCYTES ABSOLUTE COUNT (BEAKER) (test 2.81 K/ L 1.18-3.74 dzpx=364) MONOCYTES ABSOLUTE COUNT (BEAKER) (test 0.63 K/ L 0.24-0.36 ogez=967) EOSINOPHILS ABSOLUTE COUNT (BEAKER) (test 0.21 K/ L 0.04-0.36 xhqw=597) BASOPHILS ABSOLUTE COUNT (BEAKER) (test 0.05 K/ L 0.01-0.08 deck=203) IMMATURE GRANULOCYTES-RELATIVE PERCENT (BEAKER) 0 % 0-1 (test mvbx=9516) POCT-GLUCOSE [id number] 23:49:00 Test Item Value Reference Range Comments POC-GLUCOSE METER (BEAKER) 84 mg/dL 70-110 TESTED AT [address] (test feby=2848) [facility] [address] HEMOGLOBIN [id number] 21:59:00 Test Item Value Reference Range Comments HEMOGLOBIN A1C (BEAKER) (test uigk=098) 7.2 % 4.3-6.1 [id number] 20:09:00 Test Item Value Reference Range Comments HOMOCYSTEINE (BEAKER) (test csdl=018) 7.3 umol/L 5.1-15.4 VITAMIN B12 AND [id number] 20:09:00 Test Item Value Reference Range Comments VITAMIN B12 (BEAKER) (test odhj=277) 768 pg/mL 213-816 FOLATE (BEAKER) (test xdiu=066) 17.9 ng/mL >=7.0 URINALYSIS [id number] 19:18:00 Test Item Value Reference Range Comments RBC UA (BEAKER) (test fqhm=325) 1 /HPF WBC UA (BEAKER) (test qvad=064) 5 /HPF MUCUS (BEAKER) (test kimv=0523) Rare SQUAMOUS EPITHELIAL (BEAKER) (test wnyg=596) < /HPF URINALYSIS WITH MICROSCOPIC IF [id number] 19:16:00 Test Item Value Reference Range Comments COLOR (BEAKER) (test wupb=564) Light Yellow CLARITY (BEAKER) (test mhrz=671) Clear SPECIFIC GRAVITY UA (BEAKER) (test umcw=768) 1.007 1.001-1.035 PH UA (BEAKER) (test olnm=454) 6.5 5.0-8.0 PROTEIN UA (BEAKER) (test hcqs=179) Negative Negative GLUCOSE UA (BEAKER) (test jidc=502) Negative Negative KETONES UA (BEAKER) (test jfjs=571) Trace Negative BILIRUBIN UA (BEAKER) (test jitz=607) Negative Negative BLOOD UA (BEAKER) (test tinh=694) Negative Negative NITRITE UA (BEAKER) (test vyvv=393) Negative Negative LEUKOCYTE ESTERASE UA (BEAKER) (test jyyr=134) Moderate Negative UROBILINOGEN UA (BEAKER) (test hnfq=601) 0.2 mg/dL 0.2-1.0 SOURCE(BEAKER) (test czqp=5846) TSH/FREE T4 IF [id number] 14:08:00 Test Item Value Reference Range Comments THYROID STIMULATING HORMONE (BEAKER) (test 0.91 uIU/mL 0.35-4.94 mrcl=213) POCT-GLUCOSE [id number] 13:51:00 Test Item Value Reference Range Comments POC-GLUCOSE METER (BEAKER) 103 mg/dL 70-110 TESTED AT [facility] [address] (test xpex=9962) [facility] [address]
[2019-06-01] MEDS ORDERED: NA CHLORIDE 0.9% 1,000 ML ONE (23:44)
[2019-06-01 23:47] LABS: Urine Blood 2+ (NEG); Urine Glucose NEGATIVE (NEG); Urine Protein TRACE (NEG); Urine pH 5.5 (5.0-7.0)
[2019-06-02 00:03] LABS: Absolute Lymphocytes (CBC) 3.4 K/uL (0.7-4.9); Basophils % 0.9 % (0-1.3); Hematocrit 43.9 % (36.0-45.0); Lymphocytes % 28.7 % (15.3-44.8); MPV 8.9 fL (7.6-11.3); RBC Red Blood Cell Count 4.57 M/uL (3.86-4.86)
[2019-06-02 00:05] LABS: Urine Culture Reflex Order NOT NEEDED
[2019-06-02 00:12] LABS: Urine Bacteria 20-50 /HPF (<20); Urine Mucus 2+ /HPF (NONE SEEN); Urine Urothelial Cells <5 /HPF (NONE SEEN)
[2019-06-02 00:14] LABS: ALT/SGPT 23 U/L (12-78); AST/SGOT 31 U/L (15-37); Albumin 3.7 g/dL (3.4-5.0); Alkaline Phosphatase 121 U/L (45-117); BUN Blood Urea Nitrogen 7 mg/dL (7-18); Bicarbonate 28 mmol/L (21-32); Bilirubin Direct 0.2 mg/dL (0-0.2); Bilirubin Total 0.6 mg/dL (0.2-1.0); Glucose Level 98 mg/dL (74-106); Lipase 120 U/L (73-393); Potassium 4.1 mmol/L (3.5-5.1); Protein, Total 7.3 g/dL (6.4-8.2); Sodium Level 138 mmol/L (136-145)
[2019-06-02] MEDS ORDERED: ACETAMINOPHEN 325 MG TABLET ONE (00:57)
[2019-06-02] MEDS ORDERED: CEFTRIAXONE/SWI 1gm 1 GM/10 ML SYR ONE (01:30)
[2019-06-02] MEDS ORDERED: BISACODYL E.C. 5 MG TAB PO ONE (02:14)
[2019-06-02] MEDS ORDERED: BISACODYL 10 MG RECTAL SUPP ONE (02:15)
--- NOTE | 2019-06-02 02:28 | EDPHYS ---
Physician Documentation [facility] Name: Tami Martínez Age: 64 yrs Sex: Female : 1955 Arrival Date: 06/01/2019 Time: 21:[address] Private MD: ED Physician Salinas Oliveros HPI: 06/02 01:52 This 64 yrs old Female presents to ER via Wheelchair with complaints of snw Constipation, Vomiting. 01:52 The patient presents with abdominal pain that is diffuse. Onset: The symptoms/episode snw began/occurred gradually, 1.5 week(s) ago, and became persistent. The symptoms do not radiate. Associated signs and symptoms: Pertinent positives: constipation, nausea. The symptoms are described as steady. Severity of pain: At its worst the pain was moderate. It is unknown whether or not the patient has had similar symptoms in the past. It is unknown whether or not the patient has recently seen a physician. Historical: - Allergies: 06/01 21:16 No Known Allergies; aa1 - Home Meds: 21:16 aspirin 81 mg oral TbEC [Active]; citalopram 20 mg tab 1 tab once daily [Active]; aa1 amlodipine oral once daily [Active]; metformin 500 mg Oral tab 1 tab 2 times per day [Active]; atorvastatin 80 mg oral tab 1 tab once daily [Active]; pantoprazole 40 mg oral TbEC 1 tab once daily [Active]; lisinopril-hydrochlorothiazide 10-12.5 mg Oral tab 1 tab once daily [Active]; ondansetron HCl 4 mg Oral tab daily [Active]; melatonin Oral [Active]; - PMHx: 21:16 Arthritis; CHF; CVA; Diabetes - NIDDM; Hypertension; TIA; aa1 - PSHx: 21:16 Tubal ligation; aa1 - Immunization history:: Flu vaccine status is unknown. - Social history:: Smoking status: Patient denies any tobacco usage or history of. - Ebola Screening: : No symptoms or risks identified at this time. ROS: 06/02 01:52 Constitutional: Negative for fever, chills, and weight loss, Eyes: Negative for injury, snw pain, redness, and discharge, ENT: Negative for injury, pain, and discharge, Neck: Negative for injury, pain, and swelling, Cardiovascular: Negative for chest pain, palpitations, and edema, Respiratory: Negative for shortness of breath, cough, wheezing, and pleuritic chest pain, Back: Negative for injury and pain, : Negative for injury, bleeding, discharge, and swelling, MS/Extremity: Negative for injury and deformity, Skin: Negative for injury, rash, and discoloration, Neuro: Negative for headache, weakness, numbness, tingling, and seizure. Abdomen/GI: Positive for abdominal pain, nausea, constipation. Exam: 01:49 Constitutional: This is a well developed, well nourished patient who is awake, alert, snw and in no acute distress. Head/Face: Normocephalic, atraumatic. Eyes: Pupils equal round and reactive to light, extra-ocular motions intact. Lids and lashes normal. Conjunctiva and sclera are non-icteric and not injected. Cornea within normal limits. Periorbital areas with no swelling, redness, or edema. ENT: Nares patent. No nasal discharge, no septal abnormalities noted. Tympanic membranes are normal and external auditory canals are clear. Oropharynx with no redness, swelling, or masses, exudates, or evidence of obstruction, uvula midline. Mucous membranes moist. Neck: Trachea midline, no thyromegaly or masses palpated, and no cervical lymphadenopathy. Supple, full range of motion without nuchal rigidity, or vertebral point tenderness. No Meningismus. Chest/axilla: Normal chest wall appearance and motion. Nontender with no deformity. No lesions are appreciated. Cardiovascular: Regular rate and rhythm with a normal S1 and S2. No gallops, murmurs, or rubs. Normal PMI, no JVD. No pulse deficits. Respiratory: Lungs have equal breath sounds bilaterally, clear to auscultation and percussion. No rales, rhonchi or wheezes noted. No increased work of breathing, no retractions or nasal flaring. 01:49 Skin: Warm, dry with normal turgor. Normal color with no rashes, no lesions, and no evidence of cellulitis. MS/ Extremity: Pulses equal, no cyanosis. Neurovascular intact. Full, normal range of motion. Neuro: Awake and alert, GCS 15, oriented to person, place, time, and situation. Cranial nerves II-XII grossly intact. Motor strength 5/5 in all extremities. Sensory grossly intact. Cerebellar exam normal. Normal gait. Psych: Awake, alert, with orientation to person, place and time. Behavior, mood, and affect are within normal limits. 01:49 Abdomen/GI: Inspection: abdomen appears normal, Bowel sounds: normal, Palpation: abdomen is soft and non-tender, in all quadrants. Vital Signs: 06/01 21:16 BP 143 / 75; Pulse 88; Resp 18; Temp 97.6; Pulse Ox 95% on R/A; Weight 68.04 kg (R); aa1 Height 4 ft. 11 in. (149.86 cm); Pain 0/10; 22:00 BP 140 / 77; Pulse 82; Resp 16; Pulse Ox 100% on R/A; hb 23:00 BP 129 / 70; Pulse 89; Resp 17; Pulse Ox 99% on R/A; Pain 0/10; hb 06/02 00:24 BP 124 / 88; Pulse 87; Resp 15; Pulse Ox 100% on R/A; hb 01:37 BP 160 / 79; Pulse 87; Resp 16; Pulse Ox 94% ; jb4 02:30 BP 156 / 88; Pulse 86; Resp 16; Pulse Ox 96% on R/A; jb4 06/01 21:16 Body Mass Index 30.30 (68.04 kg, 149.86 cm) aa1 MDM: 06/01 23:24 Patient medically screened. snw 06/02 02:23 Data reviewed: vital signs, nurses notes. Data interpreted: Pulse oximetry: on room air snw is 94 %. Interpretation: acceptable. Counseling: I had a detailed discussion with the patient and/or guardian regarding: the historical points, exam findings, and any diagnostic results supporting the discharge/admit diagnosis, the presence of at least one elevated blood pressure reading (>120/80) during this emergency department visit, lab results, radiology results, the need for outpatient follow up, to return to the emergency department if symptoms worsen or persist or if there are any questions or concerns that arise at home. Special discussion: Based on the patient's Hx, exam, and Dx evaluation, there is no indication for emergent surgery or inpatient Tx. It is understood by the patient/guardian that if the Sx's persist or worsen they need to return immediately for re-evaluation. Based on the history and exam findings, there is no indication for further emergent testing or inpatient evaluation. I discussed with the patient/guardian the need to see the primary care provider for further evaluation of the symptoms. 02:30 ED course: On insertion of suppository, soft stool encountered. sn 06/01 23:14 Order name: Urine Culture formerly [facility] 06/01 23:14 Order name: Urine Microscopic Only; Complete Time: 00:14 formerly [facility] 06/01 23:32 Order name: Basic Metabolic Panel formerly [facility] 06/01 23:32 Order name: CBC with Diff formerly [facility] 06/01 23:32 Order name: Creatinine for Radiology; Complete Time: 00:14 formerly [facility] 06/01 23:32 Order name: Hepatic Function; Complete Time: 00:16 formerly [facility] 06/01 23:32 Order name: Lipase; Complete Time: 00:16 formerly [facility] 06/01 23:32 Order name: CT Abd/Pelvis - IV Contrast Only formerly [facility] 06/01 23:32 Order name: Blood Culture Adult (2) formerly [facility] 06/01 23:33 Order name: Basic Metabolic Panel; Complete Time: 00:16 EDND 06/01 23:33 Order name: CBC with Automated Diff; Complete Time: 00:09 EDND 06/01 23:36 Order name: Urine Dipstick--Ancillary (enter results); Complete Time: 23:53 2 06/01 23:58 Order name: Glucose, Ancillary Testing; Complete Time: 23:59 EDND 06/01 23:14 Order name: Urine Dipstick-Ancillary (obtain specimen); Complete Time: 23:31 2 06/01 23:14 Order name: Urine Dipstick-Ancillary (obtain specimen); Complete Time: 23:31 w 06/01 23:32 Order name: IV Saline Lock; Complete Time: 23:48 formerly [facility] 06/01 23:32 Order name: Labs collected and sent; Complete Time: 23:47 w 06/01 23:47 Order name: Straight Cath - Urine; Complete Time: 23:47 hb Administered Medications: 06/01 23:47 Drug: NS 0.9% 1000 ml Route: IV; Rate: 125 ml/hr; Site: right antecubital; hb 06/02 02:35 Follow up: Response: No adverse reaction; IV Status: Order to discontinue infusion jb4 01:31 Drug: Rocephin 1 grams Route: IV; Rate: calculated rate; Site: right antecubital; jb4 01:34 Follow up: Response: No adverse reaction; IV Status: Completed infusion; IV Intake: [id number] 02:30 Drug: Dulcolax Suppository 10 mg Route: MT; jb4 02:35 Follow up: Response: No adverse reaction jb4 02:30 Drug: Bisacodyl 10 mg Route: PO; jb4 02:35 Follow up: Response: No adverse reaction jb4 Disposition: 05:46 Co-signature as Attending Physician, Salinas Oliveros MD I agree with the assessment and tw4 plan of care. Disposition: 06/02/19 02:26 Discharged to Home. Impression: Lower abdominal pain, unspecified, Urinary tract infection, site not specified, Fecal impaction. - Condition is Stable. - Discharge Instructions: Abdominal Pain, Adult, Hypertension, Urinary Tract Infection, Adult, Fecal Impaction, Rehydration, Adult. - Prescriptions for Erythromycin 500 mg Oral Tablet - take 1 tablet by ORAL route every 8 hours for 10 days; 30 tablet. Miralax 17 gram/dose Oral - take 1 packet by ORAL route once daily dilute powder in 8 ounces of water or juice; 1 box. - Medication Reconciliation Form, Thank You Letter, Antibiotic Education, Prescription Opioid Use form. - Follow up: Emergency Department; When: As needed; Reason: Worsening of condition. Follow up: Private Physician; When: 1 - 2 days; Reason: Recheck today's complaints, Continuance of care, Re-evaluation by your physician. - Notes: No metformin for 48 hours after contrast in ED Signatures: Dispatcher [employer] EDMS Isela Pitt RN RN aa1 Madisyn Francis, CASE MANAGER-C CASE MANAGER-Csnw Juli Chamberlain RN RN Mayo Baltazar RN RN jb4 Salinas Oliveros MD MD tw4 Viyda Lester 2 Corrections: (The following items were deleted from the chart) 03:33 02:26 06/02/2019 02:26 Discharged to Home. Impression: Lower abdominal pain, jb4 unspecified; Urinary tract infection, site not specified; Fecal impaction. Condition is Stable. Forms are Medication Reconciliation Form, Thank You Letter, Antibiotic Education, Prescription Opioid Use. Follow up: Emergency Department; When: As needed; Reason: Worsening of condition. Follow up: Private Physician; When: 1 - 2 days; Reason: Recheck today's complaints, Continuance of care, Re-evaluation by your physician. daryl
--- NOTE | 2019-06-02 02:28 | ER ---
Nurse's Notes [facility] Name: Tami Martínez Age: 64 yrs Sex: Female : 1955 Arrival Date: 06/01/2019 Time: 21:[address] Private MD: Diagnosis: Lower abdominal pain, unspecified;Urinary tract infection, site not specified;Fecal impaction Presentation: 06/01 21:13 Presenting complaint: family reports constipation and vomiting x 1.5 weeks. Transition aa1 of care: patient was not received from another setting of care. Onset of symptoms was May 22, 2019. Risk Assessment: Do you want to hurt yourself or someone else? Patient reports no desire to harm self or others. Initial Sepsis Screen: Does the patient meet any 2 criteria? No. Patient's initial sepsis screen is negative. Does the patient have a suspected source of infection? No. Patient's initial sepsis screen is negative. Care prior to arrival: None. 21:13 Method Of Arrival: Wheelchair aa1 21:13 Acuity: FRANKY 3 aa1 Triage Assessment: 21:16 General: Appears in no apparent distress. comfortable, Behavior is calm, cooperative, aa1 appropriate for age. Historical: - Allergies: 21:16 No Known Allergies; aa1 - Home Meds: 21:16 aspirin 81 mg oral TbEC [Active]; citalopram 20 mg tab 1 tab once daily [Active]; aa1 amlodipine oral once daily [Active]; metformin 500 mg Oral tab 1 tab 2 times per day [Active]; atorvastatin 80 mg oral tab 1 tab once daily [Active]; pantoprazole 40 mg oral TbEC 1 tab once daily [Active]; lisinopril-hydrochlorothiazide 10-12.5 mg Oral tab 1 tab once daily [Active]; ondansetron HCl 4 mg Oral tab daily [Active]; melatonin Oral [Active]; - PMHx: 21:16 Arthritis; CHF; CVA; Diabetes - NIDDM; Hypertension; TIA; aa1 - PSHx: 21:16 Tubal ligation; aa1 - Immunization history:: Flu vaccine status is unknown. - Social history:: Smoking status: Patient denies any tobacco usage or history of. - Ebola Screening: : No symptoms or risks identified at this time. Screenin:02 Abuse screen: Denies threats or abuse. Denies injuries from another. Nutritional hb screening: No deficits noted. Tuberculosis screening: No symptoms or risk factors identified. Fall Risk None identified. Assessment: 22:03 General: Appears in no apparent distress. Behavior is calm, cooperative. Pain: Denies hb pain. Neuro: Level of Consciousness is awake, alert, obeys commands, Oriented to person, place, time, situation. Cardiovascular: Capillary refill < 3 seconds Patient's skin is warm and dry. Respiratory: Airway is patent Respiratory effort is even, unlabored, Respiratory pattern is regular, symmetrical. GI: Reports constipation, nausea, vomiting. : No signs and/or symptoms were reported regarding the genitourinary system. EENT: No signs and/or symptoms were reported regarding the EENT system. Derm: Skin is pink, warm \T\ dry. Musculoskeletal: No signs and/or symptoms reported regarding the musculoskeletal system. 23:15 Reassessment: Patient appears in no apparent distress at this time. No changes from hb previously documented assessment. Patient and/or family updated on plan of care and expected duration. Pain level reassessed. Family remains at bedside. 06/02 00:24 Reassessment: Patient appears in no apparent distress at this time. No changes from hb previously documented assessment. Patient and/or family updated on plan of care and expected duration. Pain level reassessed. 01:37 Reassessment: Patient appears in no apparent distress at this time. Patient and/or jb4 family updated on plan of care and expected duration. Pain level reassessed. Patient is alert, oriented x 3, equal unlabored respirations, skin warm/dry/pink. 02:36 Reassessment: Patient appears in no apparent distress at this time. Patient and/or jb4 family updated on plan of care and expected duration. Pain level reassessed. Patient is alert, oriented x 3, equal unlabored respirations, skin warm/dry/pink. d/c pending arrival of pt's ride home. Vital Signs: 06/01 21:16 BP 143 / 75; Pulse 88; Resp 18; Temp 97.6; Pulse Ox 95% on R/A; Weight 68.04 kg (R); aa1 Height 4 ft. 11 in. (149.86 cm); Pain 0/10; 22:00 BP 140 / 77; Pulse 82; Resp 16; Pulse Ox 100% on R/A; hb 23:00 BP 129 / 70; Pulse 89; Resp 17; Pulse Ox 99% on R/A; Pain 0/10; hb 06/02 00:24 BP 124 / 88; Pulse 87; Resp 15; Pulse Ox 100% on R/A; hb 01:37 BP 160 / 79; Pulse 87; Resp 16; Pulse Ox 94% ; jb4 02:30 BP 156 / 88; Pulse 86; Resp 16; Pulse Ox 96% on R/A; jb4 06/01 21:16 Body Mass Index 30.30 (68.04 kg, 149.86 cm) aa1 ED Course: 06/01 21:03 Patient arrived in ED. cf2 21:13 Triage completed. aa1 21:16 Arm band placed on right wrist. aa1 21:43 Seun Apodaca, JOSAFAT is Primary Nurse. mg2 21:57 Madisyn Francis FNP-C is PHCP. snw 21:57 Salinas Oliveros MD is Attending Physician. snw 22:02 Patient has correct armband on for positive identification. Bed in low position. Call hb light in reach. Side rails up X 1. 23:30 Straight cath inserted, using sterile technique, 16 Fr. Returned cloudy urine. Patient mg2 tolerated well. 23:40 Inserted saline lock: 22 gauge in right antecubital area, using aseptic technique. hb ,using aseptic technique. by Yelena MAURICE Blood collected. 23:40 Initial lab(s) drawn, sent to lab. First set of blood cultures drawn by Yelena MAURICE. hb 23:50 No provider procedures requiring assistance completed. mg2 23:55 Second set of blood cultures drawn by Yelena MAURICE. hb 06/02 00:23 Basic Metabolic Panel Sent. hb 00:23 CBC with Diff Sent. hb 01:35 CT Abd/Pelvis - IV Contrast Only In Process Unspecified. EDMS 02:30 IV discontinued, intact, bleeding controlled, No redness/swelling at site. Pressure jb4 dressing applied. Administered Medications: 06/01 23:47 Drug: NS 0.9% 1000 ml Route: IV; Rate: 125 ml/hr; Site: right antecubital; hb 06/02 02:35 Follow up: Response: No adverse reaction; IV Status: Order to discontinue infusion jb4 01:31 Drug: Rocephin 1 grams Route: IV; Rate: calculated rate; Site: right antecubital; jb4 01:34 Follow up: Response: No adverse reaction; IV Status: Completed infusion; IV Intake: [id number] 02:30 Drug: Dulcolax Suppository 10 mg Route: NC; jb4 02:35 Follow up: Response: No adverse reaction jb4 02:30 Drug: Bisacodyl 10 mg Route: PO; jb4 02:35 Follow up: Response: No adverse reaction jb4 Intake: 01:34 IV: 10ml; Total: 10ml. jb4 Outcome: 02:26 Discharge ordered by MD. snw 03:32 Discharged to home via wheelchair, with family. jb4 03:32 Condition: stable 03:32 Discharge instructions given to patient, family, Instructed on discharge instructions, follow up and referral plans. medication usage, Demonstrated understanding of instructions, follow-up care, medications, Prescriptions given X 2. 03:33 Patient left the ED. jb4 Addendum: 06/07/2019 07:30 Addendum: Culture Results: Positive urine culture. Bacteria is resistant to, has i w intermediate sensitivity, or is not tested against prescribed antibiotics. Report given to CHASITY for further evaluation and then to cryptologic supervisor for follow up with patient. Phone call Attempt #1 pt did not answer, left voicemail. Signatures: Dispatcher [employer] EDMS Isela Pitt RN RN aa1 Madisyn Francis, CASH MANAGEMENT SPECIALIST-C CASH MANAGEMENT SPECIALIST-Csnw Joy Chan RN RN Jlui Chamberlain RN RN Mayo Baltazar RN RN jb4 Seun Apodaca RN RN [facility] Radha Mcneil cf2 Corrections: (The following items were deleted from the chart) 06/01 21:17 21:16 BP 143 / 75; Pulse 88bpm; Resp 18bpm; Pulse Ox 95% RA; Temp 97.6F; 68.04 kg aa1 Reported; Height 5 ft. 1 in.; BMI: 28.3; Pain 0/10; aa1 06/02 02:35 02:35 Response: No adverse reaction; IV Status: Completed infusion jb4 jb4 03:33 02:36 Reassessment: Patient appears in no apparent distress at this time. Patient jb4 and/or family updated on plan of care and expected duration. Pain level reassessed. Patient is alert, oriented x 3, equal unlabored respirations, skin warm/dry/pink. jb4
--- NOTE | 2019-06-02 10:50 | RAD REPORT ---
EXAM DESCRIPTION: CT - Abdomen Pelvis W Contrast - 06/02/2019 2:30 am CLINICAL HISTORY: 64-year-old female with constipation and abdominal pain TECHNIQUE: Axial CT imaging of the abdomen and pelvis was performed following the administration of intravenous contrast.. Sagittal and coronal reconstructed images were then performed. The CT stud y is performed according to ALARA (as low as reasonably achievable) or ALARA/IMAGE GENTLY, with autom atic adjustment of mA and/or kV according to patient size. Performed on: 06/02/2019 at 1:17 AM. COMPARISON: None FINDINGS: Lung bases: The lung bases are clear. There is minimal bibasilar atelectasis and/or fibros is. Liver: The liver is normal in size and configuration. No focal hepatic abnormalities are identified. Liver attenuation is within normal limits. Spleen: The spleen is normal is size, configuration and attenuation. Gallbladder and bile duct: The gallbladder is well distended and contains small gallstones. There i s no biliary ductal dilatation. Pancreas: The pancreas is grossly normal in size and configuration. Adrenal Glands: The adrenal glands are normal in size and configuration. Kidneys: The kidneys are normal in size and configuration. There is no evidence of hydronephrosis. Th ere is no evidence of nephrolithiasis. No definite solid or cystic renal mass lesions are identified. Stomach: The stomach is grossly normal. There is no definite hiatal hernia. Bowel: The bowel gas pattern is non specific and non obstructive. There is scattered colonic divertic ulosis. There is a large fecal impaction. The rectum is distended and measures approximately 7.4 x 7. 4 cm in cross-sectional diameter. Appendix: The appendix is normal. Free air: There is no evidence of free air. Free fluid: There is no evidence of free fluid. Vasculature: The aorta is normal in caliber and contour. The inferior vena cava is grossly unremarkab le. Lymphadenopathy: No pathologic lymphadenopathy is identified. Bladder: The bladder is partially distended on this examination. Reproductive: The uterus is grossly within normal limits. Bones: No acute osseous abnormalities are identified. Soft tissues: No acute soft tissue abnormalities are identified. There is a small fat-containing epig astric ventral abdominal wall hernia. IMPRESSION: 1. No evidence of acute intra-abdominal or intrapelvic pathology. 2. Scattered colonic diverticulosis. 3. Fecal impaction. The rectum is distended and measures approximately 7.4 x 7.4 cm in cross-sectiona l diameter. There is no evidence of proximal bowel obstruction. 4. Cholelithiasis without evidence of biliary ductal dilatation. Electronically signed by: Jessica Stern DO 06/02/2019 1:49 AM BUNDLE WRAPPER Due to temporary technical issues with the PACS/Fluency reporting system, reports are being signed by the in house radiologist as a courtesy to ensure prompt reporting. The interpreting radiologist is f ully responsible for the content of the report.
[2019-06-02 17:15] VITALS: TEMP 97.6
[2019-06-02 17:21] VITALS: BP 156/88; O2SAT 96
== END 2019-06-02 03:33 | disposition home or self-care (01) ==
LOC: ER 20:59
DX: N39.0 Urinary tract infection, site not specified (principal); K56.41 Fecal impaction; I10 Essential (primary) hypertension; E11.9 Type 2 diabetes mellitus without complications; I50.9 Heart failure, unspecified; Z79.82 Long term (current) use of aspirin
CPT/HCPCS: 96361; 87040 ×2; 87088; 85025; 87086; 80048; 36415; 82947; 80076; 87077; 87186; 83690; 74177; 51702; 96374; 99284; Q9967; J0696; J7030; 81003; 81015